=== PATIENT | female | born 1995 | race Caucasian/White ===

== ENCOUNTER 2022-12-22 16:01 | Outpatient (CLI) | payer OTHER, SELFPAY ==
[2022-12-22 16:52] LABS: Basophils Percent Auto 0.4 % (0.2-1.2); Eosinophils Absolute Auto 0.1 K/mm3 (0-0.3); Eosinophils Percent Auto 1.5 % (0-4.4); Hematocrit 38.1 % (37.0-47.0); Hemoglobin 12.5 g/dL (12.0-15.0); Immature Granulocyte Absolute 0.02 K/mm3 (0.00-0.031); Immature Granulocyte Percent A 0.2 % (0-0.5); Lymphocytes Absolute Auto 2.71 K/mm3 (0.9-3.2); Lymphocytes Percent Auto 28.8 % (18.3-44.2); Mean Corpuscular HGB Conc 32.8 g/dl (32-36); Mean Corpuscular Hemoglobin 27.6 pg (26-34); Mean Corpuscular Volume 84.1 fl (80-100); Mean Platelet Volume 9.3 fl (7.4-10.4); Monocytes Absolute Auto 0.5 K/mm3 (0.1-0.6); Monocytes Percent Auto 5.4 % (2.6-8.5); Neutrophils Percent Auto 63.7 % (45.5-73.1); Platelet Count Result 308 k/mm3 (150-375); Red Blood Count 4.53 M/mm3 (4.2-5.4); Red Cell Distribution Width 12.6 % (11.5-14.5); White Blood Count 9.4 K/mm3 (4.5-10.0)
[2022-12-22 17:03] LABS: Alanine Aminotransferase 26 U/L (6-35); Albumin Level 4.8 g/dL (3.5-5.1); Alkaline Phosphatase 73 U/L (38-126); Anion Gap 10 mmol/L (8-16); Aspartate Amino Transferase 29 U/L (14-36); Bilirubin,Total 0.4 mg/dL (0.2-1.3); Blood Urea Nitrogen 16 mg/dL (7-17); Calcium 9.7 mg/dL (8.4-10.2); Carbon Dioxide 25 mmol/L (22-30); Chloride 104 mmol/L (98-107); Estimated Glomerular Filt Rate > 60; Glucose 127 mg/dL (65-110); Potassium 3.8 mmol/L (3.4-5.0); Sodium 139 mmol/L (137-145)
[2022-12-22 17:32] LABS: Thyroid Stimulating Hormone 0.834 uIU/mL (0.465-4.680)
[2022-12-22 17:34] LABS: Free T4 Free Thyroxine 1.26 ng/mL (0.78-2.19)
[2022-12-22 17:36] LABS: Hemoglobin A1C 5.1 % (<5.7)
[2022-12-25 03:07] LABS: DHEA-Sulfate 279 mcg/dL (18-391); Thyroid Peroxidase Antibodies <1 IU/mL (<9)
[2022-12-25 06:25] LABS: LH 3.1 mIU/mL (***); Triiodothyronine T3 Free 2.8 pg/mL (2.3-4.2)
[2022-12-25 12:00] LABS: Testosterone Total 17 ng/dL (2-45)
[2022-12-29 22:16] LABS: Estradiol, Ultrasensitive 98 pg/mL
== END 2022-12-22 16:02 | disposition home or self-care (01) ==
LOC: ANHLAB 16:03
PROVIDERS: PCP Internal Medicine; Visit Provider Obstetrics & Gynecology
DX: N91.0 Primary amenorrhea (principal)
CPT/HCPCS: 36415; 80053; 82627; 82670; 83001; 83002; 83036; 84403; 84439; 84443; 84481; 85025; 86376

== ENCOUNTER 2023-09-10 18:17 | Emergency (ER) | payer OTHER, SELFPAY ==
--- NOTE | ~2023-09-10 | US_ITS ---
EXAMINATION: US OB <=14 wk fetus w TV INDICATION: pos preg; abd pain; c/f ectopic TECHNIQUE: Sonography of the pelvis was performed by transabdominal and transvaginal techniques. COMPARISON: 12/28/2022, images only RESULT: Uterus: 8.1 x 4.5 x 5.3 cm. Anteverted. 11 mm endometrium. Homogenous myometrium. Intrauterine gestational sac: Not seen. Right ovary: 2.2 x 1.6 x 2.7 cm. Vascular flow is present. Corpus luteal cyst. Left ovary: 4.3 x 1.5 x 3.2 cm. Vascular flow is present. No adnexal mass. Pelvis free fluid: Small volume free pelvic fluid, within physiologic range. IMPRESSION: Positive test with no intrauterine gestational sac visualized. Findings represent pregnanc y of unknown location. Differential diagnosis includes early normal, failed early, or ectopic pregna ncy. Recommend follow-up serial beta-hCG values. Ultrasound follow-up should be considered as clini isael warranted. Reviewed, dictated and finalized at location K. IMPRESSION: Positive test with no intrauterine gestational sac visualized. Findi ngs represent of unknown location. Differential diagnosis includes e elza normal, failed early, or ectopic . Recommend follow-up serial be ta-hCG values. Ultrasound follow-up should be considered as clinically warrant ed.
[2023-09-10 18:35] VITALS: BP 129/77; PULSE 117; RESP 20; TEMP 36.8; O2SAT 100
--- NOTE | 2023-09-10 18:40 | ED.ABDPAIN ---
HPI - Abdominal Pain General Chief Complaint: Abdominal Pain <Pamela Higuera PA-C - Last Filed: 09/12/23 10:23> Stated Complaint: ABD pain, ectopic <Pamela Higuera PA-C - Last Filed: 09/12/23 10:23> Time Seen by Provider: 09/10/23 18:40 <Pamela Higuera PA-C - Last Filed: 09/12/23 10:23> Focused HPI: This is a 28 year old female that presents to the ER for pelvic pain. Reports a positive home test. She has been having left sided pelvic pain which concerned her and prompted her to be seen. She has not had an US yet this . LMP 08/09. Her OB is Dr. Orellana. Denies fever, vomiting or dysuria. GENERAL: Well-appearing, well-nourished, and in no acute distress. HEAD: Normocephalic, atraumatic. CHEST: Clear to auscultation. ?No respiratory distress. HEART: Regular rate and rhythm.? NEURO: ?Alert and oriented x3. Patient screened in triage and initial orders placed.? ?Additional care and disposition to be based upon?diagnostic testing and treatment. <Pamela Higuera PA-C - Last Filed: 09/12/23 10:23> History of Present Illness HPI narrative: This is a 28-year-old 002 female presents with left-sided abdominal pain and concern for ectopic . She has never had a previous ectopic but is concerned given the abdominal pain which she did not experience with her other 2 pregnancies. She had a positive test at home on Wednesday. Her OB Gyne is Dr. Her smith she has not established with a yet for this but has an appointment to do so on 10/19/2023. She denies any vaginal bleeding. Last menstrual period 08/09/2023. Immediately after she had a positive home test she started taking vitamins. She has not yet taken anything for pain as she did not know what was safe to take during . <Aleena Spann MD - Last Filed: 09/11/23 18:07> Related Data Home Medications: Home Medications Medication Instructions Recorded Confirmed propranolol 80 mg tablet 80 mg PO Q12H 04/06/22 12/22/22 sertraline 50 mg tablet 25 mg PO DAILY 04/06/22 12/22/22 <Pamela Higuera PA-C - Last Filed: 09/12/23 10:23> Allergies/Adverse Reactions: Allergies Allergy/AdvReac Type Severity Reaction Status Date / Time sulfamethoxazole Allergy Severe Rash Verified 09/12/23 09:02 [From Bactrim] trimethoprim [From Bactrim] Allergy Severe Rash Verified 09/12/23 09:02 <Pamela Higuera PA-C - Last Filed: 09/12/23 10:23> Review of Systems Review of Systems: CONSTITUTIONAL: Denies fever GASTROINTESTINAL: Reports abdominal pain. Denies nausea, vomiting GENITOURINARY: Denies dysuria <JR Arriaga Last Filed: 09/12/23 10:23> All systems reviewed & are unremarkable except as noted in HPI and below <JR Arriaga Last Filed: 09/12/23 10:23> [facility] Past Medical History Medical History: Medical History Amenorrhea, primary Encounter for IUD removal Gestational hypertension Glaucoma <JR Arriaga Last Filed: 09/12/23 10:23> Surgical History Surgical History: Surgical History History of 07/03/15 primary c/s--arrest of dilation [place] 10/29/17 rpt c/s History of gynecological procedure (~2018) mirena iud insertion History of gynecological procedure (04/06/22) mirena iud removal History of tonsillectomy (~06/08/02) <JR Arriaga Last Filed: 09/12/23 10:23> Family History Family History: Family History Mother Diabetes mellitus <JR Arriaga Last Filed: 09/12/23 10:23> Social History Social History: Social History Smoking status: Never smoker Alcohol intake: never Substance use: never Substance use type: does not use L
[2023-09-10 19:10] LABS: Basophils Percent Auto 0.3 % (0.2-1.2); Eosinophils Absolute Auto 0.1 K/mm3 (0-0.3); Eosinophils Percent Auto 0.9 % (0-4.4); Hematocrit 35.7 % (37.0-47.0); Hemoglobin 11.6 g/dL (12.0-15.0); Immature Granulocyte Absolute 0.03 K/mm3 (0.00-0.031); Immature Granulocyte Percent A 0.3 % (0-0.5); Lymphocytes Absolute Auto 3.24 K/mm3 (0.9-3.2); Lymphocytes Percent Auto 27.6 % (18.3-44.2); Mean Corpuscular HGB Conc 32.5 g/dl (32-36); Mean Corpuscular Hemoglobin 27.4 pg (26-34); Mean Corpuscular Volume 84.2 fl (80-100); Mean Platelet Volume 8.9 fl (7.4-10.4); Monocytes Absolute Auto 0.7 K/mm3 (0.1-0.6); Monocytes Percent Auto 5.6 % (2.6-8.5); Neutrophils Absolute Auto 7.7 K/mm3 (1.3-6.7); Neutrophils Percent Auto 65.3 % (45.5-73.1); Platelet Count Result 279 k/mm3 (150-375); Red Blood Count 4.24 M/mm3 (4.2-5.4); Red Cell Distribution Width 13.1 % (11.5-14.5); White Blood Count 11.7 K/mm3 (4.5-10.0)
[2023-09-10 19:19] LABS: Appearance Urine Clear (Clear); Bilirubin Urine Negative (Negative); Blood Urine Trace (Negative); Color Urine Yellow (Yellow); Glucose Urine UA Negative (Negative); Ketones Urine Negative (Negative); Leukocyte Esterase Ur Trace LEU/UL (Negative); Nitrate Urine Negative (Negative); Protein Urine Negative (Negative); Specific Grav Ur 1.006 (1.001-1.035); Urobilinogen Urine 0.2 mg/dL (<2.0); pH Urine 5.5 (5.0-9.0)
[2023-09-10 19:21] LABS: Alanine Aminotransferase 17 U/L (6-35); Albumin Level 4.5 g/dL (3.5-5.1); Alkaline Phosphatase 71 U/L (38-126); Anion Gap 9 mmol/L (4-12); Aspartate Amino Transferase 20 U/L (14-36); Bilirubin,Total 0.4 mg/dL (0.2-1.3); Blood Urea Nitrogen 8 mg/dL (7-17); Carbon Dioxide 23 mmol/L (22-30); Chloride 106 mmol/L (98-107); Estimated CRCL calculation 159 ml/min; Estimated Glomerular Filt Rate > 60; Glucose 88 mg/dL (65-110); Lipase 130 U/L (23-300); Potassium 3.8 mmol/L (3.4-5.0); Sodium 138 mmol/L (137-145)
[2023-09-10 19:28] LABS: Bacteria Urine None Seen /hpf; Non Pathogenic Casts 0-2; RBC Urine 0-2 /hpf (0-2); Squamous Epithelial Cell Urine Few /hpf (Few); WBC Urine 0-5 /hpf (0-3)
[2023-09-10 19:29] LABS: Add Urine Microscopic? YES
[2023-09-10] MEDS: ACETAMINOPHEN 500 MG TABLET 1000 MG PO (20:14)
[2023-09-10 23:04] VITALS: BP 129/73; PULSE 89; RESP 17; TEMP 36.8; O2SAT 100
== END 2023-09-10 23:05 | disposition home or self-care (01) ==
PROVIDERS: Physician Assistant; Emergency Provider Student in an Organized Health Care Education/Training Program; PCP Family Medicine
DX: O26.891 Other specified pregnancy related conditions, first trimester (principal); R10.9 Unspecified abdominal pain; O99.891 Other specified diseases and conditions complicating pregnancy; D72.829 Elevated white blood cell count, unspecified; H40.9 Unspecified glaucoma; O99.011 Anemia complicating pregnancy, first trimester; D64.9 Anemia, unspecified; Z3A.01 Less than 8 weeks gestation of pregnancy
CPT/HCPCS: 36415; 76801; 76817; 80053; 81001; 81025; 83690; 84702; 85025; 99284; A9270

== ENCOUNTER 2023-09-12 09:01 | Emergency (ER) | payer OTHER, SELFPAY ==
[2023-09-12 09:05] VITALS: BP 119/74; PULSE 104; RESP 18; TEMP 37; O2SAT 100
--- NOTE | 2023-09-12 09:14 | ED.ABDPAIN ---
HPI - Abdominal Pain General Chief Complaint: Abdominal Pain Stated Complaint: R/O ectopic Time Seen by Provider: 09/12/23 09:14 Source: patient Mode of arrival: ambulatory Limitations: no limitations History of Present Illness HPI narrative: Patient is 28 years old white female drove herself to the emergency room with intermittent pain left mid abdomen started 1 week ago,. She denies any fever, chills, nausea, vomiting, diarrhea, constipation, urinary symptoms, vaginal bleeding or discharge. Last menstrual period was August 09, 2023. Patient was seen 2 days ago in our emergency room and tested positive for and came back to check beta hCG and make sure she does not have ectopic . Patient is scheduled see her OBGYN October 2023 beta hCG on September 10, 2023 was 773 Related Data Home Medications Medication Instructions Recorded Confirmed propranolol 80 mg tablet 80 mg PO Q12H 04/06/22 12/22/22 sertraline 50 mg tablet 25 mg PO DAILY 04/06/22 12/22/22 Allergies Allergy/AdvReac Type Severity Reaction Status Date / Time sulfamethoxazole Allergy Severe Rash Verified 09/12/23 09:02 [From Bactrim] trimethoprim [From Bactrim] Allergy Severe Rash Verified 09/12/23 09:02 Review of Systems Review of Systems: All systems reviewed & are unremarkable except as noted in HPI and below PMFSH Past Medical History Medical History Amenorrhea, primary Encounter for IUD removal Gestational hypertension Glaucoma Surgical History Surgical History History of 07/03/15 primary c/s--arrest of dilation [place] 10/29/17 rpt c/s History of gynecological procedure (~2018) mirena iud insertion History of gynecological procedure (04/06/22) mirena iud removal History of tonsillectomy (~06/08/02) Family History Family History Mother Diabetes mellitus Social History Social History Smoking status: Never smoker Alcohol intake: never Substance use: never Substance use type: does not use Lack of Transportation: No Lack of Food: Never True Current Housing: I Have Housing Concerned About Future Housing: No Difficulty Paying Gas/Electric Bills: No Difficulty Paying for Meds: No Currently Unemployed: No Education: High School Diploma/GED Difficulty w/ Childcare or Family Care: No Living arrangements: other Additional living arrangements comments: Occupation/Education: other 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 Gender identity (if verbalized by the patient): Female Sexual Orientation (if Verbalized by the Patient): Straight or Heterosexual Exam Narrative: General appearance: Well-developed, well-nourished Skin: Normal color Head: Normocephalic, nontraumatic Eyes: Clear conjunctiva ENT: Oropharynx normal, ears normal, nose normal Neck: Supple, nontender Chest and respiratory: Airway patent, no respiratory distress, no accessory muscle use Heart: Regular rate/rhythm Abdomen: Soft, slight tenderness left mid abdomen, no bruises, no swelling or rash, no organomegaly, quiet bowel sounds Vascular: Normal peripheral pulses, normal capillary refill. 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
[2023-09-12 10:02] LABS: Appearance Urine Clear (Clear); Bacteria Urine None Seen /hpf; Bilirubin Urine Negative (Negative); Blood Urine Negative (Negative); Color Urine Yellow (Yellow); Glucose Urine UA Negative (Negative); Ketones Urine Negative (Negative); Leukocyte Esterase Ur Trace LEU/UL (Negative); Nitrate Urine Negative (Negative); Non Pathogenic Casts 0-2; Protein Urine Negative (Negative); Specific Grav Ur 1.005 (1.001-1.035); Squamous Epithelial Cell Urine Few /hpf (Few); Urobilinogen Urine 0.2 mg/dL (<2.0); WBC Urine 0-5 /hpf (0-3); pH Urine 5.5 (5.0-9.0)
[2023-09-12 10:13] LABS: Add Urine Microscopic? YES
--- NOTE | 2023-09-12 11:45 | WPDCN ---
Assessment and Plan Assessment and plan (1) Abdominal pain during : Qualifiers: Trimester: first trimester Qualified Code(s): O26.891 - Other specified related conditions, first trimester; R10.9 - Unspecified abdominal pain Code(s): O26.899 - Other specified related conditions, unspecified trimester; R10.9 - Unspecified abdominal pain Status: Acute Assessment and Plan: 28-year-old female who presents with complaint of abdominal pain Patient has had left-sided abdominal pain for the past week Patient states the pain is intermittent in nature. Patient comfortable during exam. Patient states pain is a 6/10 at worst Patient denies any relation to food consumption Denies any dysuria, vaginal discharge, or vaginal bleeding patient has mild tenderness on exam. Nonacute abdomen Vital signs stable, afebrile Beta hCG levels rising appropriate (2) of unknown anatomic location: Code(s): O36.80X0 - with inconclusive viability, not applicable or unspecified Status: Acute Assessment and Plan: patient reports positive home test at home Patient reports an LMP of 08/09 Beta HCG rising appropriately Pelvic ultrasound on 09/09 showed of unknown location Patient presents to the emergency room with left-sided abdominal pain Intermittent in nature. Patient comfortable on exam Discussed the risks of ectopic at length Offer patient hospital admission for observation Discussed that repeat ultrasound could be offered in the morning but given the low beta HCG, ultrasound findings may be unchanged Patient states she was counseled appropriately on risks Patient would prefer discharge home with continued monitoring of symptoms The patient encouraged to return with acute worsening of symptoms HPI Data of Consult Date/Time: 09/12/23 11:45 Primary Care Provider: Cheryle Billingsley MD Consult Narrative Reason for consult: left sided abdominal/pelvic pain in early Narrative: Michaela John is a 28 year old who presents to the emergency room with left-sided abdominal pain. The patient initially presented on 09/10/2023 with the same complaints. Patient states she had a positive home test prior to her arrival. Patient states this pain was atypical from her 1st 2 prior pregnancies. Patient denies any vaginal bleeding. She states her LMP was 08/09/2023. Patient's initial beta HCG levels were 773 and have risen to 1498. patient is resting comfortable in the bed during my assessment. The patient states she will get intermittent sharp pains in her left abdomen. Patient states at their worst there was 6/10. Patient has been having this pain sensation for the past week. She denies any vaginal discharge. She denies any diarrhea or constipation. She denies any dysuria. Patient does state that she was previously taking semaglutide. she has stopped since finding out she was . Patient does state that her stomach has been sensitive after stopping that medication. Review of Systems Review of Systems: All systems reviewed & are unremarkable except as noted in HPI and below PMFSH Past Medical History Medical History Amenorrhea, primary Encounter for IUD removal Gestational hypertension Glaucoma Surgical History Surgical History History of 07/03/15 primary c/s--arrest of dilation [place] 10/29/17 rpt c/s History of gynecological procedure (~2018) mirena iud insertion History of gynecological procedure (04/06/22) mirena iud removal History of tonsillectomy (~06/08/02) Family History Family History Mother Diabetes mellitus Social History Social History Smo
== END 2023-09-12 12:02 | disposition home or self-care (01) ==
PROVIDERS: Emergency Provider Emergency Medicine; PCP Family Medicine
DX: O26.891 Other specified pregnancy related conditions, first trimester (principal); R10.9 Unspecified abdominal pain
CPT/HCPCS: 36415; 81001; 84702; 99283

== ENCOUNTER 2023-09-17 08:28 | Emergency (ER) | payer OTHER, SELFPAY ==
--- NOTE | ~2023-09-17 | US_ITS ---
EXAMINATION: US OB <=14 wk fetus w TV DATE: 09/17/2023 11:28 INDICATION: Vaginal bleeding. . TECHNIQUE: Real-time transabdominal and transvaginal pelvic ultrasound was performed. COMPARISON: Ultrasound 09/10/2023 FINDINGS: TRANSABDOMINAL ULTRASOUND: The uterus measures 8.9 x 4.7 x 5.9 cm. TRANSVAGINAL ULTRASOUND: There is an intrauterine gestational sac with mean diameter of 7 mm, this co rrelates with an estimated gestational age of 5 weeks and 2 days +/- 3 days. A yolk sac is identified . No pole is identified. There is a second cyst in the endometrial complex. The right ovary mariah sures 2.8 x 1.6 x 2.3 cm. The left ovary measures 4.3 x 1.7 x 3.2 cm. There is normal vascular flow i n the ovaries. There is no free fluid in the pelvis. IMPRESSION: 1. Intrauterine gestation with estimated date of delivery of 05/17/2024. A second cyst in the endomet rial complex is indeterminate for a dichorionic twin. Reviewed, dictated and finalized at location A. IMPRESSION: 1. Intrauterine gestation with estimated date of delivery of 05/17/2024. A [place] cyst in the endometrial complex is indeterminate for a dichorionic twin.
[2023-09-17 08:56] VITALS: BP 140/95; PULSE 109; RESP 18; TEMP 36.6; O2SAT 100
--- NOTE | 2023-09-17 10:21 | ED.FEMALEGU ---
HPI - Female Genitourinary General Chief complaint: Vaginal Bleeding Stated complaint: 5 weeks , bleeding Time Seen by Provider: 09/17/23 09:47 History of Present Illness HPI Narrative: 28-year-old female that is currently about 5 and half weeks presents emergency department for evaluation of vaginal bleeding. Patient did have follow-up with her OB Gyne last week due to lower abdominal pain. Patient had ultrasound that did not show an intrauterine at that time and follow-up ultrasound was recommended. This morning patient did have some onset some vaginal spotting. Patient reports that she passed a pea sized clot and then was having some spotting afterwards. Patient denies any current abdominal pain. Patient does have history of 3 prior pregnancies, 2 pregnancies went full-term and 1 ended in miscarriage around 3 weeks. Related Data Home Medications Medication Instructions Recorded Confirmed propranolol 80 mg tablet 80 mg PO Q12H 04/06/22 12/22/22 sertraline 50 mg tablet 25 mg PO DAILY 04/06/22 12/22/22 Allergies Allergy/AdvReac Type Severity Reaction Status Date / Time sulfamethoxazole Allergy Severe Rash Verified 09/17/23 10:05 [From Bactrim] trimethoprim [From Bactrim] Allergy Severe Rash Verified 09/17/23 10:05 Review of Systems Review of Systems: All systems reviewed & are unremarkable except as noted in HPI and below PMFSH Past Medical History Medical History Amenorrhea, primary Encounter for IUD removal Gestational hypertension Glaucoma Surgical History Surgical History History of 07/03/15 primary c/s--arrest of dilation [place] 10/29/17 rpt c/s History of gynecological procedure (~2018) mirena iud insertion History of gynecological procedure (04/06/22) mirena iud removal History of tonsillectomy (~06/08/02) Family History Family History Mother Diabetes mellitus Social History Social History Smoking status: Never smoker Alcohol intake: never Substance use: never Substance use type: does not use Lack of Transportation: No Lack of Food: Never True Current Housing: I Have Housing Concerned About Future Housing: No Difficulty Paying Gas/Electric Bills: No Difficulty Paying for Meds: No Currently Unemployed: No Education: High School Diploma/GED Difficulty w/ Childcare or Family Care: No Living arrangements: other Additional living arrangements comments: Occupation/Education: other 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 HEAD: normocephalic, atraumatic. EYES: PERRLA/EOMI, conjunctivae clear. NOSE: Normal no drainage EARS:TMS clear with good light reflex. THROAT: Pharynx clear, no exudate. NECK: Supple. No adenopathy, no masses. RESPIRATORY: Airway patent, respirations nonlabored. Clear to auscultation bilaterally, no rales, rhonchi, wheezing. CARDIOVASCULAR: Regular rate and rhythm without murmurs rubs or gallops. ABDOMINAL: Soft, nontender, nondistended, normal bowel sounds MUSCULOSKELETAL: Moves all extremities. Strength/ROM intact, No edema, No calf tenderness. NEURO: Alert. Cranial nerves II through XII intact. Good gait. Good coordination SKIN: Warm, dry. Normal Color Course Course Emergency Course: patient was discharged to home with instructions for out patient follow-up with OB Gyne Vital Signs Vital signs: Vital Signs Temperature 98 F 09/17/23 08:56 Pulse Rate 109 H 09/17/23 08:56 Respiratory Rate 18 09/17/23 08:56 Blo
[2023-09-17] MEDS: SODIUM CHLORIDE 0.9% IV 1,000 ML 999 ML IV CONT (11:31)
[2023-09-17 11:42] LABS: Basophils Percent Auto 0.3 % (0.2-1.2); Eosinophils Absolute Auto 0.1 K/mm3 (0-0.3); Eosinophils Percent Auto 0.9 % (0-4.4); Hematocrit 38.6 % (37.0-47.0); Hemoglobin 12.3 g/dL (12.0-15.0); Immature Granulocyte Absolute 0.04 K/mm3 (0.00-0.031); Immature Granulocyte Percent A 0.4 % (0-0.5); Lymphocytes Absolute Auto 2.47 K/mm3 (0.9-3.2); Lymphocytes Percent Auto 26.3 % (18.3-44.2); Mean Corpuscular HGB Conc 31.9 g/dl (32-36); Mean Corpuscular Volume 84.6 fl (80-100); Mean Platelet Volume 9.1 fl (7.4-10.4); Monocytes Absolute Auto 0.5 K/mm3 (0.1-0.6); Monocytes Percent Auto 5.1 % (2.6-8.5); Neutrophils Absolute Auto 6.3 K/mm3 (1.3-6.7); Platelet Count Result 301 k/mm3 (150-375); Red Blood Count 4.56 M/mm3 (4.2-5.4); Red Cell Distribution Width 12.9 % (11.5-14.5); White Blood Count 9.4 K/mm3 (4.5-10.0)
[2023-09-17 11:49] LABS: Appearance Urine Clear (Clear); Bacteria Urine None Seen /hpf; Bilirubin Urine Negative (Negative); Blood Urine 1+ (Negative); Color Urine Yellow (Yellow); Glucose Urine UA Negative (Negative); Ketones Urine Negative (Negative); Leukocyte Esterase Ur Negative LEU/UL (Negative); Nitrate Urine Negative (Negative); Non Pathogenic Casts 0-2; Protein Urine Negative (Negative); RBC Urine 0-2 /hpf (0-2); Specific Grav Ur 1.007 (1.001-1.035); Squamous Epithelial Cell Urine Occasional /hpf (Few); Urobilinogen Urine 0.2 mg/dL (<2.0); WBC Urine 0-5 /hpf (0-3); pH Urine 7.5 (5.0-9.0)
[2023-09-17 11:53] LABS: Prothrombin Time 13.4 Seconds (11.1-14.7)
[2023-09-17 11:54] LABS: Partial Thromboplastin Time 23.6 Seconds (22.3-36.8)
[2023-09-17 12:01] LABS: Alanine Aminotransferase 18 U/L (6-35); Alkaline Phosphatase 63 U/L (38-126); Anion Gap 10 mmol/L (4-12); Aspartate Amino Transferase 31 U/L (14-36); Bilirubin,Total 0.6 mg/dL (0.2-1.3); Blood Urea Nitrogen 10 mg/dL (7-17); Calcium 10.1 mg/dL (8.4-10.2); Carbon Dioxide 22 mmol/L (22-30); Chloride 106 mmol/L (98-107); Estimated CRCL calculation 135 ml/min; Estimated Glomerular Filt Rate > 60; Glucose 82 mg/dL (65-110); Potassium 4.2 mmol/L (3.4-5.0); Sodium 138 mmol/L (137-145)
[2023-09-17 12:11] LABS: Add Urine Microscopic? YES
[2023-09-17 12:58] VITALS: BP 123/90; PULSE 88; RESP 20; TEMP 36.8; O2SAT 100
== END 2023-09-17 12:59 | disposition home or self-care (01) ==
PROVIDERS: Emergency Provider Emergency Medicine; PCP Family Medicine
DX: O20.9 Hemorrhage in early pregnancy, unspecified (principal); Z3A.01 Less than 8 weeks gestation of pregnancy
CPT/HCPCS: 36415; 76801; 76817; 80053; 81001; 81025; 84702; 85025; 85610; 85730; 86850; 86900; 86901; 96360; 99284; J7030

== ENCOUNTER 2023-10-11 08:26 | Emergency (ER) | payer SELFPAY ==
--- NOTE | ~2023-10-11 | US_ITS ---
EXAMINATION: US OB <= 14 weeks fetus DATE: 10/11/2023 11:00 INDICATION: Vaginal bleeding. Twin . TECHNIQUE: Real-time transabdominal and transvaginal obstetric ultrasound. FINDINGS: Ultrasound dated 09/17/2023 The uterus measures 9.8 x 6.2 x 9 cm. There is twin living dichorionic, diamniotic . Twin A: [place]-rump length measures 2.14 cm corresponding to 8 week 5 day gestation. heart rate 164 BPM. Placenta is identified. Twin B: heart rate 173 BPM. [place]-rump length measures 2.1 cm corresponding to 8 week 5 day ges tation. Placenta is identified. The ovaries within normal limits. No free fluid in the pelvis. IMPRESSION: 1. Twin living intrauterine with an EGA of 8 weeks, 5 days (EDC by initial ultrasound of ). Reviewed, dictated and finalized at location B. IMPRESSION: 1. Twin living intrauterine with an EGA of 8 weeks, 5 days (EDC by in itial ultrasound of 05/17/2024).
[2023-10-11 08:35] VITALS: BP 145/94; PULSE 100; RESP 18; TEMP 37.2; O2SAT 98
--- NOTE | 2023-10-11 09:19 | ED.PREGNANCY ---
HPI - General Chief complaint: Vaginal Bleeding Stated complaint: miscarriage Time Seen by Provider: 10/11/23 08:51 Source: patient and family () Mode of arrival: ambulatory Limitations: no limitations History of Present Illness HPI Narrative: The patient presents with vaginal bleeding and low bilateral abdominal pain and cramping. She is a 12 female , reportedly 9 weeks , LMP 08/09/23. She noted that she had some vaginal bleeding earlier in this at the beginning of the month but it stopped. Last night she began having heavy bleeding. Her OB Gyne is Dr. Orellana. She has not yet established with them for this but has upcoming appointment October 19, 2023.Has not yet taken anything for pain. She has also been having some other vaginal discharge. Related Data Home Medications Medication Instructions Recorded Confirmed propranolol 80 mg tablet 80 mg PO Q12H 04/06/22 12/22/22 sertraline 50 mg tablet 25 mg PO DAILY 04/06/22 12/22/22 Allergies Allergy/AdvReac Type Severity Reaction Status Date / Time sulfamethoxazole Allergy Severe Rash Verified 10/11/23 08:27 [From Bactrim] trimethoprim [From Bactrim] Allergy Severe Rash Verified 10/11/23 08:27 REPLACED BY [facility] Past Medical History Medical History (Updated 10/11/23 @ 22:13 by Aleena Spann MD) Amenorrhea, primary Gestational hypertension Glaucoma Surgical History Surgical History History of 07/03/15 primary c/s--arrest of dilation [place] 10/29/17 rpt c/s History of gynecological procedure (~2018) mirena iud insertion History of gynecological procedure (04/06/22) mirena iud removal History of tonsillectomy (~06/08/02) Family History Family History Mother Diabetes mellitus Social History Social History Smoking status: Never smoker Alcohol intake: never Substance use: never Substance use type: does not use Lack of Transportation: No Lack of Food: Never True Current Housing: I Have Housing Concerned About Future Housing: No Difficulty Paying Gas/Electric Bills: No Difficulty Paying for Meds: No Currently Unemployed: No Education: High School Diploma/GED Difficulty w/ Childcare or Family Care: No Living arrangements: other Additional living arrangements comments: Occupation/Education: other 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 HEAD: Normocephalic, atraumatic. EYES: Non injected, non icteric ENT: Nares clear, no rhinorrhea or epistaxis. NECK: Supple. CHEST: Speaking in full sentences. No respiratory distress. HEART: Regular rate and rhythm. . ABDOMEN: Soft, nondistended. : Normal external female genitalia. No significant bleeding in vaginal vault. Cervical os visualized and closed. EXTREMITIES: Normal range of motion. No edema. SKIN: Warm, dry, no rash. NEURO: No focal deficits. Alert and oriented x3. PSYCH: Normal mood and affect. Course Vital Signs Vital signs: Vital Signs Temperature 98.9 F 10/11/23 08:35 Pulse Rate 100 10/11/23 08:35 Respiratory Rate 18 10/11/23 08:35 Blood Pressure 145/94 H 10/11/23 08:35 Pulse Oximetry 98 10/11/23 08:35 Oxygen Delivery Room Air 10/11/23 08:35 Temperature 98.9 F 10/11/23 08:35 Pulse Rate 89 10/11/23 14:30 Respiratory Rate 16 10/11/23 14:30 Blood Pressure 114/67 10/11/23 14:30 Pulse Oximetry 99 10/11/23 14:30 Oxygen Delivery Room Air 10/11/23 08:35 MDM - OB/Uterine Contractions MDM Narrative Medical decision making narrative: This patient
--- NOTE | 2023-10-11 09:45 | PC.NURSE ---
pt in ultrasound at this time.
[2023-10-11 10:56] LABS: Basophils Percent Auto 0.3 % (0.2-1.2); Eosinophils Absolute Auto 0.1 K/mm3 (0-0.3); Eosinophils Percent Auto 0.7 % (0-4.4); Hematocrit 36.1 % (37.0-47.0); Hemoglobin 11.8 g/dL (12.0-15.0); Immature Granulocyte Absolute 0.05 K/mm3 (0.00-0.031); Immature Granulocyte Percent A 0.5 % (0-0.5); Lymphocytes Absolute Auto 2.21 K/mm3 (0.9-3.2); Lymphocytes Percent Auto 20.5 % (18.3-44.2); Mean Corpuscular HGB Conc 32.7 g/dl (32-36); Mean Corpuscular Hemoglobin 27.2 pg (26-34); Mean Corpuscular Volume 83.2 fl (80-100); Mean Platelet Volume 8.9 fl (7.4-10.4); Monocytes Absolute Auto 0.6 K/mm3 (0.1-0.6); Monocytes Percent Auto 5.8 % (2.6-8.5); Neutrophils Absolute Auto 7.8 K/mm3 (1.3-6.7); Neutrophils Percent Auto 72.2 % (45.5-73.1); Platelet Count Result 241 k/mm3 (150-375); Red Blood Count 4.34 M/mm3 (4.2-5.4); Red Cell Distribution Width 13.3 % (11.5-14.5); White Blood Count 10.8 K/mm3 (4.5-10.0)
[2023-10-11 11:07] LABS: Alanine Aminotransferase 16 U/L (6-35); Albumin Level 4.1 g/dL (3.5-5.1); Alkaline Phosphatase 59 U/L (38-126); Anion Gap 6 mmol/L (4-12); Aspartate Amino Transferase 22 U/L (14-36); Bilirubin,Total 0.3 mg/dL (0.2-1.3); Blood Urea Nitrogen 7 mg/dL (7-17); Calcium 9.1 mg/dL (8.4-10.2); Carbon Dioxide 24 mmol/L (22-30); Chloride 106 mmol/L (98-107); Estimated CRCL calculation 193 ml/min; Estimated Glomerular Filt Rate > 60; Glucose 82 mg/dL (65-110); Potassium 3.8 mmol/L (3.4-5.0); Sodium 136 mmol/L (137-145)
[2023-10-11 11:09] LABS: Prothrombin Time 13.8 Seconds (11.1-14.7)
[2023-10-11 11:10] LABS: Partial Thromboplastin Time 23.8 Seconds (22.3-36.8)
[2023-10-11 11:50] VITALS: BP 105/60; PULSE 88; RESP 15; O2SAT 100
[2023-10-11 11:50] LABS: Appearance Urine Clear (Clear); Bacteria Urine None Seen /hpf; Bilirubin Urine Negative (Negative); Blood Urine 3+ (Negative); Color Urine Yellow (Yellow); Glucose Urine UA Negative (Negative); Ketones Urine Negative (Negative); Leukocyte Esterase Ur Trace LEU/UL (Negative); Nitrate Urine Negative (Negative); Non Pathogenic Casts 0-2; Protein Urine Negative (Negative); Specific Grav Ur 1.006 (1.001-1.035); Squamous Epithelial Cell Urine Few /hpf (Few); Urobilinogen Urine 0.2 mg/dL (<2.0); WBC Urine 0-5 /hpf (0-3)
[2023-10-11 11:54] LABS: Add Urine Microscopic? YES
[2023-10-11 12:55] LABS: Trichomonas Vag PCR NOT DETECTED (NOT DETECTE)
[2023-10-11 13:20] LABS: Chlamydia trachomatis NOT DETECTED (NOT DETECTE); Neisseria gonorrhoeae PCR NOT DETECTED (NOT DETECTE)
[2023-10-11 14:30] VITALS: BP 114/67; PULSE 89; RESP 16; O2SAT 99
== END 2023-10-11 14:32 | disposition home or self-care (01) ==
PROVIDERS: Emergency Provider Student in an Organized Health Care Education/Training Program; PCP Family Medicine
DX: O20.0 Threatened abortion (principal); O30.001 Twin pregnancy, unspecified number of placenta and unspecified number of amniotic sacs, first trimester; O99.011 Anemia complicating pregnancy, first trimester; D64.9 Anemia, unspecified; O99.891 Other specified diseases and conditions complicating pregnancy; D72.829 Elevated white blood cell count, unspecified; Z3A.08 8 weeks gestation of pregnancy
CPT/HCPCS: 36415; 76801; 76802; 80053; 81001; 84702; 85025; 85461; 85610; 85730; 86850; 86900; 86901; 87491; 87591; 87661; 99284

== ENCOUNTER 2024-01-04 14:28 | Outpatient (CLI) | payer BC, SELFPAY ==
[2024-01-04 15:26] VITALS: BP 117/63; PULSE 106
--- NOTE | 2024-01-04 15:28 | PC.NURSE ---
Dr. Orellana informed of this 21 wk twin gestation's arrival with c/o increased wetness in underwear since this morning. ROM plus was negative. Was able to doppler both babies, but could only get Twin B to trace any on the monitor. OK to discharge to home.
--- NOTE | 2024-01-04 15:28 | PC.NURSE ---
Dr. Orellana also informed pt has felt some intermittent lower abdominal pressure approximately twice per hour this week. Pt to increase fluid intake and pelvic rest.
[2024-01-04 15:30] VITALS: BP 127/61; PULSE 115; PULSE 116; RESP 18; TEMP 36.9
== END 2024-01-04 15:35 | disposition home or self-care (01) ==
LOC: ANHOBOP 14:37 → ANHOBPP 14:37
PROVIDERS: PCP Family Medicine; Visit Provider Obstetrics & Gynecology
DX: O42.90 Premature rupture of membranes, unspecified as to length of time between rupture and onset of labor, unspecified weeks of gestation (principal); Z3A.00 Weeks of gestation of pregnancy not specified
CPT/HCPCS: 84112; 99199

== ENCOUNTER 2024-02-12 16:10 | Observation (INO) | payer BC, SELFPAY ==
[2024-02-12 17:34] VITALS: BP 115/62; PULSE 97
--- NOTE | 2024-02-12 18:32 | OBADM ---
This patient, Michaela John, admitted to the OB room OB Post [facility] for observation. Patient/family oriented to hospital policies and general routines including ID bracelet, bed and alarms, visiting hours, pain management, procedures, bathroom and other care routines, personal items, smoking policy, room service/diet, and visiting hours. Patient/Family are encouraged to report perceived risks to care and to ask questions if they do not understand what they are told or what they should do.
--- NOTE | 2024-03-02 12:59 | PM.OBTRLD ---
OB - Triage/Final Diagnosis Visit Information Comments/Additional reasons for admission: I have assessed the risk for this patient, Michaela John, and determined that she would benefit from observation care. Final Diagnosis (1) Decreased movement: Code(s): O36.8190 - Decreased movements, unspecified trimester, not applicable or unspecified Status: Acute
== END 2024-02-12 17:55 | disposition home or self-care (01) ==
PROVIDERS: Admitting Provider Obstetrics & Gynecology; PCP Family Medicine; Visit Provider Obstetrics & Gynecology
DX: O36.8190 Decreased fetal movements, unspecified trimester, not applicable or unspecified (principal)
CPT/HCPCS: G0378; G0379

== ENCOUNTER 2024-02-27 18:43 | Outpatient (CLI) | payer BC, SELFPAY ==
[2024-02-27 19:11] VITALS: BP 135/86; PULSE 100
[2024-02-27 19:15] VITALS: BP 134/83; PULSE 99
[2024-02-27 19:23] LABS: Basophils Percent Auto 0.1 % (0.2-1.2); Eosinophils Absolute Auto 0.1 K/mm3 (0-0.3); Eosinophils Percent Auto 0.7 % (0-4.4); Hematocrit 27.2 % (37.0-47.0); Immature Granulocyte Absolute 0.11 K/mm3 (0.00-0.031); Lymphocytes Absolute Auto 2.05 K/mm3 (0.9-3.2); Lymphocytes Percent Auto 18.7 % (18.3-44.2); Mean Corpuscular HGB Conc 33.1 g/dl (32-36); Mean Corpuscular Hemoglobin 27.1 pg (26-34); Mean Corpuscular Volume 81.9 fl (80-100); Mean Platelet Volume 8.9 fl (7.4-10.4); Monocytes Absolute Auto 0.9 K/mm3 (0.1-0.6); Monocytes Percent Auto 7.9 % (2.6-8.5); Neutrophils Absolute Auto 7.8 K/mm3 (1.3-6.7); Neutrophils Percent Auto 71.6 % (45.5-73.1); Platelet Count Result 224 k/mm3 (150-375); Red Blood Count 3.32 M/mm3 (4.2-5.4); Red Cell Distribution Width 13.5 % (11.5-14.5)
[2024-02-27 19:30] VITALS: BP 135/79; PULSE 100
[2024-02-27 19:30] LABS: Creatinine Urine 25.4 mg/dL; Total Protein Urine Random 15 mg/dL; Ur Ttl Prot Creatinine Ratio 0.59 mg/mg (0-0.20)
[2024-02-27 19:32] LABS: Alanine Aminotransferase 13 U/L (6-35); Albumin Level 3.4 g/dL (3.5-5.1); Alkaline Phosphatase 84 U/L (38-126); Anion Gap 10 mmol/L (4-12); Aspartate Amino Transferase 18 U/L (14-36); Bilirubin,Total 0.2 mg/dL (0.2-1.3); Blood Urea Nitrogen 7 mg/dL (7-17); Calcium 8.9 mg/dL (8.4-10.2); Carbon Dioxide 21 mmol/L (22-30); Chloride 102 mmol/L (98-107); Estimated Glomerular Filt Rate > 60; Glucose 112 mg/dL (65-110); Potassium 3.3 mmol/L (3.4-5.0); Sodium 133 mmol/L (137-145); Uric Acid 3.6 mg/dL (2.5-7.5)
[2024-02-27 19:46] VITALS: BP 132/78; PULSE 96
[2024-02-27 19:55] LABS: Bacteria Urine None Seen /hpf; Need Manual Microscopic Reviewed; Non Pathogenic Casts 0-2; RBC Urine 0-2 /hpf (0-2); Squamous Epithelial Cell Urine None Seen /hpf (Few); WBC Urine 0-5 /hpf (0-3)
[2024-02-27 20:00] VITALS: BP 130/74; PULSE 99
[2024-02-27 20:02] LABS: Add Urine Microscopic? NO; Appearance Urine Clear (Clear); Blood Urine Negative (Negative); Color Urine Light Yellow (Yellow); Glucose Urine UA Negative (Negative); Ketones Urine Negative (Negative); Nitrate Urine Negative (Negative); Protein Urine Negative (Negative); Specific Grav Ur <= 1.005 (1.001-1.035); pH Urine 6.5 (5.0-9.0)
[2024-02-27 20:03] LABS: Bilirubin Urine Negative (Negative); Leukocyte Esterase Ur Negative LEU/UL (Negative); Urobilinogen Urine 0.2 mg/dL (<2.0)
[2024-02-27 20:15] VITALS: BP 135/77; PULSE 101
--- NOTE | 2024-02-27 20:24 | PM.OBTRLD ---
OB - Triage/Final Diagnosis Visit Information Comments/Additional reasons for admission: I have assessed the risk for this patient, Michaela John, and determined that she would benefit from observation care. Evaluation Laboratory results: Laboratory Tests 02/27/24 19:11 WBC 11.0 H RBC 3.32 L Hgb 9.0 L Hct 27.2 L MCV 81.9 MCH 27.1 MCHC 33.1 RDW 13.5 Plt Count 224 MPV 8.9 Immature Gran % (Auto) 1.0 H Neut % (Auto) 71.6 Lymph % (Auto) 18.7 [place] % (Auto) 7.9 Eos % (Auto) 0.7 Baso % (Auto) 0.1 L Lymph # (Auto) 2.05 [place] # (Auto) 0.9 H Eos # (Auto) 0.1 Baso # (Auto) 0.0 Abs Immat Gran (auto) 0.11 H Absolute Neuts (auto) 7.8 H Absolute Nucleated RBC 0.000 Nucleated RBC % 0.0 Sodium 133 L Potassium 3.3 L Chloride 102 Carbon Dioxide 21 L Anion Gap 10 BUN 7 Creatinine 0.50 L Estim Creat Clear Calc Not Reportable Estimated GFR > 60 Glucose 112 H Uric Acid 3.6 Calcium 8.9 Total Bilirubin 0.2 AST 18 ALT 13 Alkaline Phosphatase 84 Total Protein 6.0 L Albumin 3.4 L Urine Color Light yellow Urine Appearance Clear Urine pH 6.5 Ur Specific [place] <= 1.005 Urine Protein Negative Urine Glucose (UA) Negative Urine Ketones Negative Ur Blood (Man) Negative Urine Nitrate Negative Urine Bilirubin Negative Urine Urobilinogen 0.2 Add Ur Microanalysis Reviewed Leukocyte Esterase Rfl Negative Urine RBC 0-2 Urine WBC 0-5 Ur Squamous Epith Cells None seen Urine Bacteria None seen Urine Casts 0-2 U Random Total Protein 15 Urine Creatinine 25.4 Protein/Creat Ratio 2 0.59 H Vital signs: Vital Signs - 24 hr 02/27/24 19:11 02/27/24 19:15 02/27/24 19:30 Pulse Rate 100 99 100 Blood Pressure 135/86 134/83 135/79 02/27/24 19:46 02/27/24 20:00 02/27/24 20:15 Pulse Rate 96 99 101 H Blood Pressure 132/78 130/74 135/77 Final Diagnosis (1) Pre-eclampsia superimposed on chronic hypertension: Code(s): O11.9 - Pre-existing hypertension with pre-eclampsia, unspecified trimester Status: Acute
== END 2024-02-27 20:35 ==
LOC: ANHOBOP 18:48 → ANHOBPP 18:49
PROVIDERS: Obstetrics & Gynecology; PCP Family Medicine; Visit Provider Student in an Organized Health Care Education/Training Program
DX: O13.9 Gestational [pregnancy-induced] hypertension without significant proteinuria, unspecified trimester (principal)
CPT/HCPCS: 36415; 80053; 81003; 82570; 84156; 84550; 85025; 99199

== ENCOUNTER 2024-03-15 13:05 | Outpatient (CLI) | payer BC, SELFPAY ==
[2024-03-15 13:54] LABS: Basophils Percent Auto 0.2 % (0.2-1.2); Eosinophils Absolute Auto 0.1 K/mm3 (0-0.3); Eosinophils Percent Auto 0.6 % (0-4.4); Hematocrit 30.9 % (37.0-47.0); Hemoglobin 9.9 g/dL (12.0-15.0); Immature Granulocyte Absolute 0.22 K/mm3 (0.00-0.031); Immature Granulocyte Percent A 1.8 % (0-0.5); Lymphocytes Absolute Auto 1.72 K/mm3 (0.9-3.2); Lymphocytes Percent Auto 13.9 % (18.3-44.2); Mean Corpuscular Hemoglobin 26.5 pg (26-34); Mean Corpuscular Volume 82.8 fl (80-100); Mean Platelet Volume 9.3 fl (7.4-10.4); Monocytes Absolute Auto 0.8 K/mm3 (0.1-0.6); Monocytes Percent Auto 6.1 % (2.6-8.5); Neutrophils Absolute Auto 9.6 K/mm3 (1.3-6.7); Neutrophils Percent Auto 77.4 % (45.5-73.1); Platelet Count Result 216 k/mm3 (150-375); Red Blood Count 3.73 M/mm3 (4.2-5.4); Red Cell Distribution Width 15.5 % (11.5-14.5); White Blood Count 12.4 K/mm3 (4.5-10.0)
[2024-03-15 14:04] LABS: Creatinine Urine 113.4 mg/dL
[2024-03-15 14:05] LABS: Total Protein Urine Random < 5 mg/dL; Ur Ttl Prot Creatinine Ratio < 0.04 mg/mg (0-0.20)
[2024-03-15 14:10] LABS: Alanine Aminotransferase 14 U/L (6-35); Albumin Level 3.9 g/dL (3.5-5.1); Alkaline Phosphatase 99 U/L (38-126); Anion Gap 11 mmol/L (4-12); Aspartate Amino Transferase 22 U/L (14-36); Bilirubin,Total 0.3 mg/dL (0.2-1.3); Blood Urea Nitrogen 4 mg/dL (7-17); Calcium 8.9 mg/dL (8.4-10.2); Carbon Dioxide 19 mmol/L (22-30); Chloride 103 mmol/L (98-107); Estimated Glomerular Filt Rate > 60; Glucose 160 mg/dL (65-110); Potassium 3.3 mmol/L (3.4-5.0); Sodium 133 mmol/L (137-145)
== END 2024-03-15 13:06 | disposition home or self-care (01) ==
DX: O14.90 Unspecified pre-eclampsia, unspecified trimester (principal); O10.919 Unspecified pre-existing hypertension complicating pregnancy, unspecified trimester; O30.049 Twin pregnancy, dichorionic/diamniotic, unspecified trimester; Z3A.00 Weeks of gestation of pregnancy not specified
CPT/HCPCS: 36415; 80053; 82570; 84156; 85025

== ENCOUNTER 2024-03-19 09:26 | Observation (INO) | payer BC, SELFPAY ==
[2024-03-19 09:55] VITALS: BP 112/63; PULSE 114
[2024-03-19 10:00] VITALS: RESP 18; TEMP 36.8
[2024-03-19 10:03] VITALS: BMI 46.0
--- NOTE | 2024-03-19 10:07 | OBADM ---
This patient, Michaela John, admitted to the OB room 116 for observation. Patient/family oriented to hospital policies and general routines including ID bracelet, bed and alarms, visiting hours, pain management, procedures, bathroom and other care routines, personal items, smoking policy, room service/diet, and visiting hours. Patient/Family are encouraged to report perceived risks to care and to ask questions if they do not understand what they are told or what they should do.
[2024-03-19 10:30] VITALS: BP 120/66; PULSE 106
[2024-03-19 10:34] LABS: Add Urine Microscopic? YES; Appearance Urine Cloudy (Clear); Bacteria Urine 1+ /hpf; Bilirubin Urine Negative (Negative); Blood Urine Negative (Negative); Color Urine Yellow (Yellow); Glucose Urine UA Negative (Negative); Ketones Urine Trace mg/dL (Negative); Leukocyte Esterase Ur 2+ LEU/UL (Negative); Nitrate Urine Negative (Negative); Non Pathogenic Casts 0-2; Protein Urine Trace mg/dL (Negative); Specific Grav Ur 1.019 (1.001-1.035); Squamous Epithelial Cell Urine Many /hpf (Few); Urobilinogen Urine 0.2 mg/dL (<2.0); WBC Urine 21-50 /hpf (0-3)
--- NOTE | 2024-03-19 10:41 | PC.NURSE ---
labia and blotted with a white cloth- no blood noted. Blotted white cloth by rectum and scant amount red blood noted. No hemorrhoid visible externally. Pt up to void.
[2024-03-19 11:00] VITALS: BP 112/69; PULSE 108
--- NOTE | 2024-03-21 10:36 | PM.OBTRLD ---
OB - Triage/Final Diagnosis Visit Information Reason for evaluation: threatened labor Comments/Additional reasons for admission: I have assessed the risk for this patient, Michaela John, and determined that she would benefit from observation care. Evaluation Laboratory results: Laboratory Tests 03/19/24 10:22 Urine Color Yellow Urine Appearance Cloudy H Urine pH 6.0 Ur Specific [place] 1.019 Urine Protein Trace Urine Glucose (UA) Negative Urine Ketones Trace H Ur Blood (Man) Negative Urine Nitrate Negative Urine Bilirubin Negative Urine Urobilinogen 0.2 Leukocyte Esterase Rfl 2+ H Urine RBC 3-5 H Urine WBC 21-50 H Ur Squamous Epith Cells Many H Urine Bacteria 1+ H Urine Casts 0-2
== END 2024-03-19 11:48 | disposition home or self-care (01) ==
PROVIDERS: Admitting Provider Obstetrics & Gynecology; Visit Provider Obstetrics & Gynecology
DX: O47.03 False labor before 37 completed weeks of gestation, third trimester (principal); Z3A.31 31 weeks gestation of pregnancy
CPT/HCPCS: 81001; 87086; G0378; G0379

== ENCOUNTER 2024-03-23 07:31 | Outpatient (CLI) | payer BC, SELFPAY ==
--- NOTE | ~2024-03-23 | US_ITS ---
Limited Abdominal Sonogram: Real-time sonographic imaging of the right upper quadrant was performed. Clinical History: Twin Findings: The liver appears normal with no evidence of mass lesion or bile duct dilatation. Main por robyn vein demonstrates normal direction of flow. The gallbladder is well distended, and demonstrates f ocal area of cholesterolosis with ringdown artifact. Small gallstones also present. The common bile d uct measures 2 mm. The visualized pancreas, aorta, and IVC are unremarkable. Impression: Cholelithiasis and focal area of cholesterolosis. Reviewed, dictated and finalized at location M. Impression: Cholelithiasis and focal area of cholesterolosis.
== END 2024-03-23 07:32 | disposition home or self-care (01) ==
LOC: ANHIMG 07:33
DX: O30.049 Twin pregnancy, dichorionic/diamniotic, unspecified trimester (principal); O14.90 Unspecified pre-eclampsia, unspecified trimester; Z3A.00 Weeks of gestation of pregnancy not specified; K80.20 Calculus of gallbladder without cholecystitis without obstruction
CPT/HCPCS: 76705

== ENCOUNTER 2024-04-14 10:00 | Outpatient (RCR) | payer BC, SELFPAY ==
[2024-03-01 14:11] VITALS: BP 128/59; PULSE 108
[2024-03-08 15:35] VITALS: BP 120/79; PULSE 89
[2024-03-17 14:03] VITALS: BP 125/74; PULSE 113
[2024-03-21 14:34] VITALS: BP 123/75; PULSE 104
[2024-03-23 09:25] VITALS: BP 125/78; PULSE 122
[2024-03-31 13:36] VITALS: BP 134/78; PULSE 98
[2024-04-04 10:42] VITALS: BP 127/74; PULSE 105
[2024-04-07 10:05] VITALS: BP 123/65; PULSE 105
[2024-04-11 13:11] VITALS: BP 125/76; PULSE 102
--- NOTE | ~2024-04-14 | US_ITS ---
EXAMINATION: US OB BPP multi gestation DATE: 03/08/2024 15:36 INDICATION: Third trimester twin . Preeclampsia. TECHNIQUE: Real-time ultrasound of the pelvis was performed. The interpreting radiologist was not pre sent for the study. COMPARISON: 03/01/2024 FINDINGS: There are two living fetuses by thick membrane consistent with dichorionic diamniotic pregn maria l. Fetus A is on maternal left and fetus B is on maternal right. The amniotic fluid volume is sub jectively normal with normal deepest vertical pocket measurement of 3.2 cm for fetus A and 4.2 cm for fetus B. Fetus A: Presentation is vertex. Placenta is posterior. cardiac activity and movement are noted. F etal heart rate is 155 beats per minute (bpm). Biophysical profile performed by the technologist: breathing (30 sec sustained breathing in 30 minutes): 2 out of 2 movement (3 gross body movements in 30 minutes): 2 out of 2 tone (one episode of omcxyvl-qopwekxex-bcijjwk limb movement): 2 out of 2 Amniotic fluid pocket (2 cm): 2 out of 2 Total score: 8 out of 8 Fetus B: Fetus is in transverse lie with head to the maternal right. cardiac activity and movement are noted. heart rate is 150 bpm. Biophysical profile performed by the technologist: breathing (30 sec sustained breathing in 30 minutes): 2 out of 2 movement (3 gross body movements in 30 minutes): 2 out of 2 tone (one episode of wbuqtuh-zgqdudaxz-mzmpzdb limb movement): 2 out of 2 Amniotic fluid pocket (2 cm): 2 out of 2 Total score: 8 out of 8 IMPRESSION: 1. Living twin fetuses. 2. Biophysical profile 8 out of 8 for fetus A and 8 out of 8 for fetus B. Reviewed, dictated and finalized at location A.
--- NOTE | ~2024-04-14 | US_ITS ---
EXAMINATION: US OB BPP multi gestation DATE: 04/14/2024 12:06 INDICATION: Preeclampsia. Third trimester. Twins. TECHNIQUE: Real-time ultrasound of the pelvis was performed. COMPARISON: Ultrasound 04/04/2024 FINDINGS: There are two living fetuses surrounded by a membrane. The placentas are posterior and anterior. The amniotic fluid volume is subjectively normal in each sac. Fetus A: Presentation is vertex. heart rate is 147 beats per minute (bpm). Biophysical profile performed by the technologist: breathing (30 sec sustained breathing in 30 minutes): 2 out of 2 movement (3 gross body movements in 30 minutes): 2 out of 2 tone (one episode of dbkmbqe-enwgdolwj-ejexmgd limb movement): 2 out of 2 Amniotic fluid pocket (2 cm): 2 out of 2 Total score: 8 out of 8 Fetus B: Presentation is vertex. heart rate is 138 bpm. Biophysical profile performed by the technologist: breathing (30 sec sustained breathing in 30 minutes): 2 out of 2 movement (3 gross body movements in 30 minutes): 2 out of 2 tone (one episode of asztwqq-ayddcuida-vrlikfz limb movement): 2 out of 2 Amniotic fluid pocket (2 cm): 2 out of 2 Total score: 8 out of 8 IMPRESSION: 1. Living the leonid, diamniotic twin fetuses. 2. Biophysical profile 8 out of 8 for fetus A and 8 out of 8 for fetus B. Reviewed, dictated and finalized at location B.
--- NOTE | ~2024-04-14 | US_ITS ---
EXAMINATION: US OB BPP multi gestation DATE: 03/01/2024 14:57 INDICATION: Preeclampsia. Twin . Estimated gestational age of 29 weeks and 0 days. TECHNIQUE: Real-time ultrasound of the pelvis was performed. COMPARISON: Ultrasound 11/10/2023, 10/11/23 FINDINGS: There are two living fetuses by a membrane. The placentas are anterior and posterior. The amniotic fluid volume is subjectively normal in each sac. Fetus A: Presentation is vertex on the mother's left. heart rate is 140 beats per minute (bpm). Biophysical profile performed by the technologist: breathing (30 sec sustained breathing in 30 minutes): 2 out of 2 movement (3 gross body movements in 30 minutes): 2 out of 2 tone (one episode of kdczmfm-lnbvthnhc-qfdwgmd limb movement): 2 out of 2 Amniotic fluid pocket (2 cm): 2 out of 2 Total score: 8 out of 8 Fetus B: Lie is transverse with head to the mother's left. heart rate is 145 bpm. Biophysical profile performed by the technologist: breathing (30 sec sustained breathing in 30 minutes): 2 out of 2 movement (3 gross body movements in 30 minutes): 2 out of 2 tone (one episode of dotehld-ryiuemcer-plpuddg limb movement): 2 out of 2 Amniotic fluid pocket (2 cm): 2 out of 2 Total score: 8 out of 8 IMPRESSION: 1. Living dichorionic, diamniotic twin fetuses. 2. Biophysical profile 8 out of 8 for fetus A and 8 out of 8 for fetus B. Reviewed, dictated and finalized at location A.
--- NOTE | ~2024-04-14 | US_ITS ---
EXAMINATION: US OB BPP multi gestation DATE: 03/21/2024 14:53 INDICATION: Twin . Third trimester. TECHNIQUE: Real-time ultrasound of the pelvis was performed. COMPARISON: Ultrasound 03/08/2024, 10/11/23 FINDINGS: There are two living fetuses. The placentas are anterior and posterior. The amniotic fluid volume is subjectively normal in each sac. The cervical length is 3.0 cm on transabdominal images, which is no rmal. Fetus A: Presentation is vertex. heart rate is 141 beats per minute (bpm). Biophysical profile performed by the technologist: breathing (30 sec sustained breathing in 30 minutes): 2 out of 2 movement (3 gross body movements in 30 minutes): 2 out of 2 tone (one episode of tatfhoz-qlfvskktf-czrxbuo limb movement): 2 out of 2 Amniotic fluid pocket (2 cm): 2 out of 2 Total score: 8 out of 8 Fetus B: Presentation is vertex. heart rate is 139 bpm. Biophysical profile performed by the technologist: breathing (30 sec sustained breathing in 30 minutes): 2 out of 2 movement (3 gross body movements in 30 minutes): 2 out of 2 tone (one episode of khyetml-luwypljwc-zrzwgkn limb movement): 0 out of 2 Amniotic fluid pocket (2 cm): 2 out of 2 Total score: 6 out of 8 IMPRESSION: 1. Living dichorionic, diamniotic twin fetuses. 2. Biophysical profile 8 out of 8 for fetus A and 6 out of 8 for fetus B. Reviewed, dictated and finalized at location A.
--- NOTE | ~2024-04-14 | US_ITS ---
EXAMINATION: US OB BPP multi gestation DATE: 04/04/2024 11:46 INDICATION: Preeclampsia. . Third trimester. TECHNIQUE: Real-time ultrasound of the pelvis was performed. COMPARISON: Ultrasound 03/21/2024, 10/11/2023 FINDINGS: There are two living fetuses. The placentas are anterior and fundal. The cervical length is 3.4 cm o n transabdominal images, which is normal. The amniotic fluid volume is subjectively normal in each sa c. Fetus A: Presentation is vertex. heart rate is 140 beats per minute (bpm). Biophysical profile performed by the technologist: breathing (30 sec sustained breathing in 30 minutes): 2 out of 2 movement (3 gross body movements in 30 minutes): 2 out of 2 tone (one episode of zafdcif-nftrnviuq-lboyuqb limb movement): 2 out of 2 Amniotic fluid pocket (2 cm): 2 out of 2 Total score: 8 out of 8 Fetus B: Presentation is vertex. heart rate is 143 bpm. Biophysical profile performed by the technologist: breathing (30 sec sustained breathing in 30 minutes): 2 out of 2 movement (3 gross body movements in 30 minutes): 2 out of 2 tone (one episode of rvehzwc-oemupbkcp-qlddatq limb movement): 2 out of 2 Amniotic fluid pocket (2 cm): 2 out of 2 Total score: 8 out of 8 IMPRESSION: 1. Living dichorionic, diamniotic twin fetuses. 2. Biophysical profile 8 out of 8 for fetus A and 8 out of 8 for fetus B. Reviewed, dictated and finalized at location A.
[2024-04-14 12:00] VITALS: BP 141/78; PULSE 102
== END 2024-05-10 17:55 | disposition home or self-care (01) ==
LOC: ANHOBOP 10:00
PROVIDERS: PCP Family Medicine; Visit Provider Student in an Organized Health Care Education/Training Program
DX: O30.043 Twin pregnancy, dichorionic/diamniotic, third trimester (principal); Z3A.29 29 weeks gestation of pregnancy
CPT/HCPCS: 59025; 76819; J3010

== ENCOUNTER 2024-04-17 16:21 | Outpatient (CLI) | payer BC, SELFPAY ==
[2024-04-17 16:45] VITALS: BP 139/90; PULSE 101
[2024-04-17 17:00] VITALS: BP 142/91; PULSE 94
[2024-04-17 17:04] LABS: Basophils Percent Auto 0.2 % (0.2-1.2); Eosinophils Absolute Auto 0.1 K/mm3 (0-0.3); Eosinophils Percent Auto 0.9 % (0-4.4); Hemoglobin 10.6 g/dL (12.0-15.0); Lymphocytes Absolute Auto 1.65 K/mm3 (0.9-3.2); Lymphocytes Percent Auto 16.2 % (18.3-44.2); Mean Corpuscular HGB Conc 33.1 g/dl (32-36); Mean Corpuscular Hemoglobin 27.5 pg (26-34); Mean Corpuscular Volume 82.9 fl (80-100); Mean Platelet Volume 9.1 fl (7.4-10.4); Monocytes Absolute Auto 0.8 K/mm3 (0.1-0.6); Monocytes Percent Auto 7.8 % (2.6-8.5); Neutrophils Absolute Auto 7.6 K/mm3 (1.3-6.7); Neutrophils Percent Auto 73.9 % (45.5-73.1); Platelet Count Result 171 k/mm3 (150-375); Red Blood Count 3.86 M/mm3 (4.2-5.4); Red Cell Distribution Width 17.7 % (11.5-14.5); White Blood Count 10.2 K/mm3 (4.5-10.0)
[2024-04-17 17:15] LABS: Alanine Aminotransferase 18 U/L (6-35); Albumin Level 3.4 g/dL (3.5-5.1); Alkaline Phosphatase 122 U/L (38-126); Anion Gap 9 mmol/L (4-12); Aspartate Amino Transferase 26 U/L (14-36); Bilirubin,Total 0.4 mg/dL (0.2-1.3); Blood Urea Nitrogen 4 mg/dL (7-17); Calcium 8.7 mg/dL (8.4-10.2); Carbon Dioxide 23 mmol/L (22-30); Chloride 104 mmol/L (98-107); Estimated Glomerular Filt Rate > 60; Glucose 85 mg/dL (65-110); Potassium 3.4 mmol/L (3.4-5.0); Sodium 136 mmol/L (137-145); Uric Acid 4.7 mg/dL (2.5-7.5)
[2024-04-17 17:16] VITALS: BP 146/95; PULSE 95
--- NOTE | 2024-04-17 17:20 | PC.NURSE ---
Dr Griffiths notified of BP's, lab results and hx of chronic htn taking meds, Headache that she rates at a 3. Ok to dc home. Patient to have NST on .
== END 2024-04-17 17:23 | disposition home or self-care (01) ==
LOC: ANHOBOP 16:27 → ANHOBPP 16:28
PROVIDERS: Obstetrics & Gynecology; PCP Student in an Organized Health Care Education/Training Program; Visit Provider Student in an Organized Health Care Education/Training Program
DX: O13.9 Gestational [pregnancy-induced] hypertension without significant proteinuria, unspecified trimester (principal); Z3A.00 Weeks of gestation of pregnancy not specified
CPT/HCPCS: 36415; 59025; 80053; 84550; 85025

== ENCOUNTER 2024-04-19 12:08 | Inpatient (IN) | payer BC, SELFPAY ==
[2024-04-19] VITALS (21 sets, daily range): BP systolic 112–139; BP diastolic 74–88; PULSE 90–105; RESP 13–18; TEMP 36.3; O2SAT 92–100; BMI 49.6
[2024-04-19] MEDS: diphenhydrAMINE HCl INJ 50 MG/ML VIAL 25 MG IV PUSH (01:30)
--- NOTE | 2024-04-19 13:00 | P.HP_ITS ---
H&P: HPI History of Present Illness Date/Time: 04/19/24 13:00 Chief Complaint: Chronic hypertension with superimposed Preeclampsia Di/Di twin gestation anemia desires permanent sterilization Narrative: 29-year-old who presents at 36 weeks 2 days for repeat for worsening preeclampsia. is complicated by Di/Di twin gestation. Patient has a history of chronic hypertension on Labetalol. She developed Preeclampsia without severe features at 28w gestation. Blood pressure was elevated today at testing and patient reported a worsening headache. Patient is also requesting permanent sterilization. [facility] Past Medical History Medical History Amenorrhea, primary Gestational hypertension Glaucoma Preeclampsia Surgical History Surgical History History of 07/03/15 primary c/s--arrest of dilation [place] 10/29/17 rpt c/s History of gynecological procedure (~2018) mirena iud insertion History of gynecological procedure (04/06/22) mirena iud removal History of tonsillectomy (~06/08/02) Family History Family History Mother Diabetes mellitus Social History Social History Smoking status: Never smoker Alcohol intake: never Substance use: never Substance use type: does not use Lack of Transportation: No Lack of Food: Never True Current Housing: I Have Housing Concerned About Future Housing: No Difficulty Paying Gas/Electric Bills: No Difficulty Paying for Meds: No Currently Unemployed: No Education: High School Diploma/GED Difficulty w/ Childcare or Family Care: No Living arrangements: other Additional living arrangements comments: Occupation/Education: other 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 Gender identity (if verbalized by the patient): Female Sexual Orientation (if Verbalized by the Patient): Straight or Heterosexual Spiritual care concerns: No Meds Home Medications and Allergies Home Medications Medication Instructions Recorded Confirmed Type labetalol 100 mg tablet 100 mg PO Q12H 10/19/23 04/10/24 History sertraline 50 mg tablet 50 mg PO DAILY 10/19/23 04/10/24 History folic acid 1 mg tablet 1 mg PO DAILY 11/16/23 04/10/24 History aspirin 81 mg chewable tablet 162 mg PO DAILY 01/04/24 04/10/24 History magnesium 200 mg tablet 400 mg PO DAILY 01/04/24 04/10/24 History vit no.95-ferrous 1 tablet PO DAILY 01/04/24 04/10/24 History fumarate 28 mg-folic acid 800 mcg tablet () ferrous sulfate 325 mg (65 mg 325 mg PO BID #90 tabs 03/06/24 04/10/24 Rx iron) tablet albuterol inhalation PRN Cough 04/12/24 History Allergies Allergy/AdvReac Type Severity Reaction Status Date / Time sulfamethoxazole Allergy Severe Anaphylaxis Verified 04/12/24 08:56 [From Bactrim] trimethoprim [From Bactrim] Allergy Severe Anaphylaxis Verified 04/12/24 08:56 Assessment and Plan Assessment and plan (1) Supervision of high risk , unspecified, third trimester: Code(s): O09.93 - Supervision of high risk , unspecified, third trimester Status: Acute Assessment and Plan: 29 yo at 36w2d 1. delivery x2 2. DA/DC twin 3. Chronic hypertension on labetalol 4. History of gestational diabetes 5. Undesired fertility... bilateral salpingectomy with repeat 6. superimposed Preeclampsia w/o severe features (dx 02/26) 7. 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
[2024-04-19] MEDS: ACETAMINOPHEN 500 MG TABLET 1000 MG PO (14:46)
[2024-04-19] MEDS: LACTATED RINGERS 1,000 ML 125 ML IV CONT ×2 (14:47→19:05)
[2024-04-19 15:01] LABS: Basophils Percent Auto 0.2 % (0.2-1.2); Eosinophils Percent Auto 0.4 % (0-4.4); Hematocrit 34.9 % (37.0-47.0); Hemoglobin 11.5 g/dL (12.0-15.0); Immature Granulocyte Absolute 0.09 K/mm3 (0.00-0.031); Immature Granulocyte Percent A 0.9 % (0-0.5); Lymphocytes Absolute Auto 1.48 K/mm3 (0.9-3.2); Mean Corpuscular Hemoglobin 27.6 pg (26-34); Mean Corpuscular Volume 83.7 fl (80-100); Mean Platelet Volume 9.4 fl (7.4-10.4); Monocytes Absolute Auto 0.8 K/mm3 (0.1-0.6); Monocytes Percent Auto 7.7 % (2.6-8.5); Neutrophils Absolute Auto 7.5 K/mm3 (1.3-6.7); Neutrophils Percent Auto 75.8 % (45.5-73.1); Platelet Count Result 175 k/mm3 (150-375); Red Blood Count 4.17 M/mm3 (4.2-5.4); Red Cell Distribution Width 17.3 % (11.5-14.5); White Blood Count 9.9 K/mm3 (4.5-10.0)
[2024-04-19 15:10] LABS: Alanine Aminotransferase 21 U/L (6-35); Albumin Level 3.5 g/dL (3.5-5.1); Alkaline Phosphatase 137 U/L (38-126); Anion Gap 7 mmol/L (4-12); Aspartate Amino Transferase 29 U/L (14-36); Bilirubin,Total 0.6 mg/dL (0.2-1.3); Blood Urea Nitrogen 4 mg/dL (7-17); Carbon Dioxide 25 mmol/L (22-30); Chloride 104 mmol/L (98-107); Estimated CRCL calculation 180 ml/min; Estimated Glomerular Filt Rate > 60; Glucose 72 mg/dL (65-110); Potassium 3.6 mmol/L (3.4-5.0); Sodium 136 mmol/L (137-145)
--- NOTE | 2024-04-19 15:23 | LDADM ---
This patient, Michaela John, was admitted to OB Post 115 on 04/19/24 at 12:08. Plans for labor, pain management and were discussed with patient. Patient/family oriented to hospital policies and general routines including ID bracelet, bed and alarms, visiting hours, pain management, procedures, bathroom and other care routines, personal items, smoking policy, room service/diet and guest tray routines, infant security routines, and visiting hours. Patient/Family are encouraged to report perceived risks to care and to ask questions if they do not understand what they are told or what they should do. See OBIX for further documentation.
[2024-04-19 15:45] LABS: Rapid Plasma Reagin Non-Reactive (NonReactive)
[2024-04-19 15:51] LABS: HIV 1/2 Ab P24 Ag Result Negative (Negative)
--- NOTE | 2024-04-19 19:43 | P.PNAN_ITS ---
Anes - Initial Pre Proc Eval Procedure: Operation Date: 04/24/24 07:30 Proposed Procedures p Repeat Section with Tubal Ligation - Mark Rubin MD Date/Time: 04/19/24 19:43 Surgeon: Mark Rubin MD Pre Op Diagnosis: C/S Twins Patient Data Age: 29 Gender: F Height: 1.6 m Weight: 127 kg Last Vital Signs Pulse 94 04/19/24 14:03 BP 136/75 04/19/24 14:03 Pulse Ox 99 04/19/24 13:07 O2 Del Method Room Air 04/19/24 15:23 Allergies Allergy/AdvReac Type Severity Reaction Status Date / Time sulfamethoxazole Allergy Severe Anaphylaxis Verified 04/12/24 08:56 [From Bactrim] trimethoprim [From Bactrim] Allergy Severe Anaphylaxis Verified 04/12/24 08:56 Home Medications Medication Instructions Recorded Confirmed Type labetalol 100 mg tablet 100 mg PO Q12H 10/19/23 04/19/24 History sertraline 50 mg tablet 50 mg PO DAILY 10/19/23 04/19/24 History folic acid 1 mg tablet 1 mg PO DAILY 11/16/23 04/19/24 History aspirin 81 mg chewable tablet 162 mg PO DAILY 01/04/24 04/19/24 History magnesium 200 mg tablet 400 mg PO DAILY 01/04/24 04/19/24 History vit no.95-ferrous 1 tablet PO DAILY 01/04/24 04/19/24 History fumarate 28 mg-folic acid 800 mcg tablet () ferrous sulfate 325 mg (65 mg 325 mg PO BID #90 tabs 03/06/24 04/19/24 Rx iron) tablet albuterol 1 mcg inhalation PRN Cough 04/12/24 History Laboratory Tests 04/19/24 14:44 WBC 9.9 K/mm3 (4.5-10.0) RBC 4.17 L M/mm3 (4.2-5.4) Hgb 11.5 L g/dL (12.0-15.0) Hct 34.9 L % (37.0-47.0) MCV 83.7 fl (80-100) MCH 27.6 pg (26-34) MCHC 33.0 g/dl (32-36) RDW 17.3 H % (11.5-14.5) Plt Count 175 k/mm3 (150-375) MPV 9.4 fl (7.4-10.4) Immature Gran % (Auto) 0.9 H % (0-0.5) Neut % (Auto) 75.8 H % (45.5-73.1) Lymph % (Auto) 15.0 L % (18.3-44.2) [place] % (Auto) 7.7 % (2.6-8.5) Eos % (Auto) 0.4 % (0-4.4) Baso % (Auto) 0.2 % (0.2-1.2) Lymph # (Auto) 1.48 K/mm3 (0.9-3.2) [place] # (Auto) 0.8 H K/mm3 (0.1-0.6) Eos # (Auto) 0.0 K/mm3 (0-0.3) Baso # (Auto) 0.0 K/mm3 (0.0-0.1) Abs Immat Gran (auto) 0.09 H K/mm3 (0.00-0.031) Absolute Neuts (auto) 7.5 H K/mm3 (1.3-6.7) Absolute Nucleated RBC 0.000 K/mm3 (0.0-0.012) Nucleated RBC % 0.0 % (0.0-0.2) Sodium 136 L mmol/L (137-145) Potassium 3.6 mmol/L (3.4-5.0) Chloride 104 mmol/L (98-107) Carbon Dioxide 25 mmol/L (22-30) Anion Gap 7 mmol/L (4-12) BUN 4 L mg/dL (7-17) Creatinine 0.50 L mg/dL (0.7-1.0) Estim Creat Clear Calc 180 ml/min Estimated GFR > 60 (59 - ) Glucose 72 mg/dL (65-110) Calcium 9.0 mg/dL (8.4-10.2) Total Bilirubin 0.6 mg/dL (0.2-1.3) AST 29 U/L (14-36) ALT 21 U/L (6-35) Alkaline Phosphatase 137 H U/L (38-126) Total Protein 7.0 g/dL (6.3-8.2) Albumin 3.5 g/dL (3.5-5.1) RPR Non-reactive (NonReactive) HIV 1&2 Ab/P24 Ag 4thGn Negative (Negative) Blood Type O Positive Antibody Screen Negative Patient hx anesthesia problems: none Family hx anesthesia problems: none Results Review: All pre-operative results and documents have been reviewed as part of the pre- operative evaluation. [facility] Past Medical History Medical History Amenorrhea, primary Gestational hypertension Glaucoma Preeclampsia Surgical History Surgical History History of 07/03/15 primary c/s--arrest of dilation [place] 10/29/17 rpt c/s History of gynecological procedure (~2018) mirena iud insertion History of gynecological procedure (04/06/22) mirena iud removal History of tonsillectomy (~06/08/02) Family History Family History Mother Diabetes mellitus Social History Social History Smoking status: Never smoker Alcohol intake: never Substance use: never Substance use type: does not use Do You Feel Safe in your Home?: Yes Lack of Transportation: No Lack of Food: Never True Current Housing: I Have Housing Concerned About Future Housing: No Difficulty Paying Gas/Electric Bills: No Difficulty Paying for Meds: No Currently Unemployed: No Education: High School Diploma/GED Difficulty w/ Childcare or Family Care: No Living arrangements: other Additional living arrangements comments: Occupation/Education: other 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 Gender identity (if verbalized by the patient): Female Sexual Orientation (if Verbalized by the Patient): Straight or Heterosexual Spiritual care concerns: No Anes - Eval Final PreProcedure Day of Procedure 04/19/24 19:43 Patient weight: morbidly obese Heart: regular rate and rhythm Lungs: clear to auscultation Airway: Mallampati scale class II Neurological: alert and oriented ASA classification: III Emergent: no Anesthetic plan: proceed Anesthesia type and monitoring: regional spinal and standard monitoring Results Review: All pre-operative results and documents have been reviewed as part of the pre- operative evaluation. Informed Consent: The patient's anesthetic plan and its attendant risks and benefits were discussed with the patient/family/POA. Questions were solicited and answers provided to the satisfaction of the patient/family/POA.
[2024-04-19] MEDS: FAMOTIDINE 20 MG/2 ML VIAL IV PUSH (20:46)
[2024-04-19] MEDS: ONDANSETRON INJ 4 MG/2 ML VIAL IV PUSH (20:46)
[2024-04-19] MEDS: ceFAZolin 3 GM/D5W 100 ML 100 ML IVPB (20:48)
--- NOTE | 2024-04-19 22:17 | W.PM.OBCSD ---
OB - Delivery Note Procedure Delivery date: 04/19/24 Pre-op diagnosis: Multiple Gestation, Preeclampsia w/o severe features and Previous Delivery Post-op Diagnosis: Same Induction method: None Delivery monitor: External FHT Prior to decision for section, ACOG/SM labor guidelines were considered and discussed with the patient and staff. Decision made to proceed with the section.: Yes Procedure Performed: Repeat Secondary branch: low cervical, transverse and Tubal Ligation Surgeon: Mark Rubin MD Anesthesia type: Spinal Description of Procedure/Findings: The patient was taken to the operating room where epidural anesthesia was found to be adequate. She was then prepped and draped in the usual sterile fashion in the dorsal supine position with a leftward tilt. A Pfannenstiel skin incision was then made with the scalpel and carried through to the underlying layer of fascia. The fascia was then incised in the midline and the incision extended laterally with the Hanley scissors. The superior aspect of the fascia was then grasped with the Yayo clamps, elevated, and the underlying rectus muscles dissected off bluntly and sharply. Attention was then turned to the inferior aspect of this incision which, in a similar fashion, was grasped, tented up with the Yayo clamps, and the rectus muscles dissected off both bluntly and sharply. The rectus muscles were then in the midline, and the peritoneum identified, tented up, and entered sharply with the Metzenbaum scissors. The peritoneal incision was then extended superiorly and inferiorly with good visualization of the bladder. Guille ring retractor was placed for better retraction and visualization. The uterus was inspected for malrotation. The lower uterine segment incised in a low, transverse fashion with the scalpel. The uterine incision was then extended laterally bluntly. Amniotic sac was ruptured with return of clear fluid. Fetus A was then brought to the hysterotomy and delivered. The nose and mouth were suctioned with the bulb suction, and the remainder of the was delivered atraumatically. The cord was clamped and cut. The was handed off to the waiting pediatricians (staff). Cord segment for gasses were sent. Umbilical cord blood was collected for coomb's testing. Position of Fetus B was then check. The amniotic sac was ruptured and clear fluid returned. Fetus B was brought to the hysterotomy and delivered. The remainder of the infant was delivered atraumatically. The cord was clamped and cut. The infant was handed off to the waiting pediatricians (staff). Cord segment for gasses were sent. Umbilical cord blood was collected for coomb's testing. The placentas were then removed manually, the uterus exteriorized, and cleared of all clots and debris. The uterine incision was repaired with 0 vicryl in a running fashion. Both fallopian tubes were identified and followed out to the fimbriae bilaterally. The left fallopian tube was grasped with Babcocks and elevated to identify an avascular space in the mesosalpinx. The ligasure device was then used to caogulate and ligate along the inferior mesosalpinx toward the uterine corpus. The fallopian tube was then transected at the uterine corpus. The same procedure was repeated for the right fallopian tube. The uterus was returned to the abdomen. Several figure of eight sutures with 0-vicryl were needed to obatin hemostasis both at the hysterotomy and at the site of the left fallopian tube. Hemaderm surgical powder was used on the hysterotomy to ensure hemostasis. The uterus was then reinspected to ensure hemostasis as were all subfascial tissues. The fascia was reapproximated with 0 vicryl in a running fashion. The subcutaneous layer was copiously irrigated to clear any clots or debris. The subcutaneous tissue was reapproximated using 3-0 Vicryl in a running fashion. The skin was closed with 3-0 monocryl. The patient tolerated the procedure well. Sponge, lap and needle counts were correct times three. The patient was taken to the recovery room in stable condition. Specimen: Yes (placenta x2) Urine Output: 150 Drains: No Packing: No Pathology: Yes (placenta x2) Complications: No immediate complications Condition: Stable Disposition: Floor Baby Date of : 04/19/24 Time of : 21:29 Gestational Age by Date: 36 Infant gender: Female presentation: vertex Placenta delivery description: Manual Removal Cord Vessel Description: 3 Vessels Twins 2: Date of : 04/19/24 Time of : 21:31 Weeks of gestation at delivery: 36 Infant gender: Female presentation: vertex Placental delivery description: Manual Removal Cord Vessel Description: 3 Vessels
[2024-04-19] MEDS: OXYTOCIN 30 UNITS/NS 500 ML 30 UNITS/500 ML BAG 125 UNITS IV CONT (22:44)
[2024-04-19] MEDS: MORPHINE SULFATE INJ (*CRX) 10 MG/ML AMP 3 MG IV PUSH (23:43)
[2024-04-20] VITALS (20 sets, daily range): BP systolic 117–146; BP diastolic 58–104; PULSE 81–126; RESP 14–24; TEMP 36.2–36.8; O2SAT 95–99
[2024-04-20] MEDS: MORPHINE SULFATE INJ (*CRX) 10 MG/ML AMP 3 MG IV PUSH ×2 (00:05→02:00)
[2024-04-20] MEDS: KETOROLAC 15 MG/ML VIAL (*BKC) IV PUSH ×2 (04:30→10:36)
[2024-04-20] MEDS: ACETAMINOPHEN 325 MG TABLET 650 MG PO ×3 (04:30→17:03)
--- NOTE | 2024-04-20 06:15 | OBPPTRN ---
Patient transferred to post room #287 via bed. Support person present. Oriented to unit, room, information board, rooming in, admission packet and security measures. Patient verbalizes understanding.
--- NOTE | 2024-04-20 06:30 | PC.NURSE ---
This RN transferred patient to post unit and gave report to Chandler Emery RN at this time. Reported on QBL, fundus and medications given.
[2024-04-20] MEDS: MULTIVIT/MIN/PREN/FOL AC/IRON TABLET 1 TAB PO (07:19)
[2024-04-20] MEDS: SIMETHICONE 80 MG TAB.CHEW PO ×2 (07:19→17:03)
[2024-04-20] MEDS: POLYSACCHARIDE IRON COMPLEX 150 MG CAPSULE PO (07:20)
[2024-04-20] MEDS: SERTRALINE HCL 50 MG TABLET PO (07:21)
[2024-04-20] MEDS: DOCUSATE SODIUM 100 MG CAPSULE PO ×2 (07:22→17:03)
[2024-04-20] MEDS: DEXTROSE 5%/0.45% SOD CHL 1,000 ML 125 ML IV CONT (07:22)
[2024-04-20] MEDS: LABETALOL HCL 100 MG TABLET PO ×2 (07:22→20:00)
[2024-04-20] MEDS: diphenhydrAMINE HCl INJ 50 MG/ML VIAL 25 MG IV PUSH (07:37)
--- NOTE | 2024-04-20 08:19 | P.PNOB_ITS ---
OB - PN: Subj Subjective Date/time seen: 04/20/24 08:19 Interval history: patient was just getting up to this morning. Both twin infants were transferred to [facility] for respiratory support. Patient is tearful and upset this morning after being from her babies. Patient has not had much sleep overnight. She reports adequate pain control. She denies any heavy bleeding overnight. She has no other questions today. Patient comments: no complaints and pain well controlled; no flatus present OB - PN: Obj Data Labs 04/19/24 14:44 04/19/24 14:44 Labs: Laboratory Results - last 24 hr 04/19/24 14:44 WBC 9.9 RBC 4.17 L Hgb 11.5 L Hct 34.9 L MCV 83.7 MCH 27.6 MCHC 33.0 RDW 17.3 H Plt Count 175 MPV 9.4 Immature Gran % (Auto) 0.9 H Neut % (Auto) 75.8 H Lymph % (Auto) 15.0 L [place] % (Auto) 7.7 Eos % (Auto) 0.4 Baso % (Auto) 0.2 Lymph # (Auto) 1.48 [place] # (Auto) 0.8 H Eos # (Auto) 0.0 Baso # (Auto) 0.0 Abs Immat Gran (auto) 0.09 H Absolute Neuts (auto) 7.5 H Absolute Nucleated RBC 0.000 Nucleated RBC % 0.0 Sodium 136 L Potassium 3.6 Chloride 104 Carbon Dioxide 25 Anion Gap 7 BUN 4 L Creatinine 0.50 L Estim Creat Clear Calc 180 Estimated GFR > 60 Glucose 72 Calcium 9.0 Total Bilirubin 0.6 AST 29 ALT 21 Alkaline Phosphatase 137 H Total Protein 7.0 Albumin 3.5 RPR Non-reactive HIV 1&2 Ab/P24 Ag 4thGn Negative Blood Type O Positive Antibody Screen Negative OB - PN A/P Plan day: 1 Plan: routine care Comments: patient tired and emotional this morning twins were transferred to [facility] mild range BP with tachycardia overnight post op H/H pending incision covered with YOMI dressing kaleb continue labetalol BID and monitoring BP monitoring urine output reports adequate pain control continue routine post op care Time Spent With Patient Time: Total time spent is greater than 50% in coordination of care (as documented) at patient's floor/unit and/or counseling patient: Time with patient: less than 15 minutes Review of Systems Constitutional: Constitutional: Reports no additional constitutional complaints Cardiovascular: Cardiovascular: Reports no additional cardiovascular complaints Respiratory: Respiratory: Reports no additional respiratory complaints Gastrointestinal: Gastrointestinal: Reports no additional gastrointestinal complaints Genitourinary: Genitourinary: Reports no additional female genitourinary complaints Exam Const: General: comfortable and no acute distress Resp: Effort & Inspection: normal respiratory effort Auscultation: clear to auscultation bilaterally Cardio: Rate: regular rate GI: GI Palp: Yes Soft to palpation and Yes Tenderness to palpation present (GI) (appropriately tender around incision ) Auscultation: normal bowel sounds Other: covered with YOMI dressing Urinary Catheter: Urinary Catheter: urine clear Psych: Appearance: grossly normal Mental Status: mental status grossly normal Affect: normal affect
[2024-04-20 08:27] LABS: Basophils Percent Auto 0.2 % (0.2-1.2); Eosinophils Percent Auto 0.1 % (0-4.4); Hematocrit 31.4 % (37.0-47.0); Hemoglobin 10.3 g/dL (12.0-15.0); Immature Granulocyte Absolute 0.05 K/mm3 (0.00-0.031); Immature Granulocyte Percent A 0.4 % (0-0.5); Lymphocytes Absolute Auto 1.31 K/mm3 (0.9-3.2); Lymphocytes Percent Auto 10.9 % (18.3-44.2); Mean Corpuscular HGB Conc 32.8 g/dl (32-36); Mean Corpuscular Hemoglobin 27.9 pg (26-34); Mean Corpuscular Volume 85.1 fl (80-100); Mean Platelet Volume 9.4 fl (7.4-10.4); Monocytes Absolute Auto 0.6 K/mm3 (0.1-0.6); Monocytes Percent Auto 5.3 % (2.6-8.5); Neutrophils Percent Auto 83.1 % (45.5-73.1); Platelet Count Result 158 k/mm3 (150-375); Red Blood Count 3.69 M/mm3 (4.2-5.4); Red Cell Distribution Width 17.4 % (11.5-14.5)
--- NOTE | 2024-04-20 10:29 | WPDANLDPN2 ---
Anes-Prog Note L&D Date/Time: 04/20/24 10:29 Comfortable throughout: section Neuraxial method: spinal Epidural/Spinal procedure site: clean & non-tender Neuro status: Neuro function grossly intact. Cardiovascular status: normal Respiratory status: normal Airway patency: baseline Mental status: baseline Post-Op hydration status: normal Vital Signs: Last Vital Signs Temp 36.2 C L 04/20/24 07:40 Pulse 113 H 04/20/24 07:40 Resp 16 04/20/24 07:40 BP 128/83 04/20/24 07:40 Pulse Ox 98 04/20/24 07:40 O2 Del Method Room Air 04/20/24 05:00 Pain score (VAS): 0/10 I/O: Intake & Output 04/19/24 04/20/24 04/20/24 23:59 07:59 15:59 Intake Total 1000 Output Total 6997 473 Balance -2220 -473 Post-procedural complaints: none Patient feedback: Patient satisfied with anesthetic care.
--- NOTE | 2024-04-20 10:29 | WPDANLDNPN2 ---
Anes-Prog Note L&D-Neuraxial Date/Time: 04/20/24 10:29 Neuraxial medications: intrathecal PF morphine Opiod-related complaints: pruritis moderate, treatment effective Patient feedback: Patient satisfied with post-operative pain management.
--- NOTE | 2024-04-20 13:18 | PC.NURSE ---
Patient left at 1318 to visit infant at [facility] aware that she needs to return by 1700.
[2024-04-20] MEDS: IBUPROFEN 600 MG TABLET PO (17:07)
--- NOTE | 2024-04-20 17:45 | PC.NURSE ---
1740. This RN went to help mom set up her breast pump she brought from home per her request. Mom has a mom cozi brand breast pump. Instructions given on cleaning, care, usage, that there should be no pain, pumping schedule for milk production, collection, and storage of human milk. Patient was assessed for correct placement, flange size, to pump for comfort and nipple stretching/stimulation for adequate milk production every 3 hours (8 times in 24 hours) 1-2 times at night. Parents are encouraged to record the pumping schedule on the feeding sheet. Moms nipples measured at size 18mm bilaterally. Mom is encouraged to use a flange 1-3mm more than her nipple size per the mom cozi website. ?Mother voiced understanding of the education shared along with mom/baby guide and the pump measurement, flange fit handout for additional resource information. Reported to the Primary RN.
[2024-04-21] VITALS: BP 131/91; PULSE 96; RESP 18; TEMP 36.9; O2SAT 97
[2024-04-21] MEDS: IBUPROFEN 600 MG TABLET PO ×4 (00:03→18:48)
[2024-04-21] MEDS: ACETAMINOPHEN 325 MG TABLET 650 MG PO ×4 (00:03→18:48)
[2024-04-21 04:20] VITALS: BP 134/94; PULSE 88; RESP 18; TEMP 36.7; O2SAT 96
[2024-04-21 08:10] VITALS: BP 141/89; PULSE 107; RESP 16; TEMP 36.5; O2SAT 100
[2024-04-21 08:46] VITALS: PULSE 106
[2024-04-21] MEDS: SIMETHICONE 80 MG TAB.CHEW PO ×3 (08:46→18:48)
[2024-04-21] MEDS: SERTRALINE HCL 50 MG TABLET PO (08:46)
[2024-04-21] MEDS: LABETALOL HCL 100 MG TABLET PO (08:46)
[2024-04-21] MEDS: DOCUSATE SODIUM 100 MG CAPSULE PO ×2 (08:46→18:48)
[2024-04-21] MEDS: MULTIVIT/MIN/PREN/FOL AC/IRON TABLET 1 TAB PO (08:46)
[2024-04-21 12:32] VITALS: BP 126/78; PULSE 111; RESP 18; TEMP 36.6; O2SAT 98
--- NOTE | 2024-04-21 12:33 | P.PNOB_ITS ---
OB - PN: Subj Subjective Date/time seen: 04/21/24 12:33 Patient comments: no complaints, pain well controlled, tolerating diet and flatus present OB - PN: Obj Data Labs 04/20/24 08:13 04/19/24 14:44 OB - PN A/P Plan day: 2 Plan: routine care Comments: patient doing well this AM BP mild range diuresing well infants are doing well at [facility] Pt is having some mild pain at the 6 hour lesly, advised staggering pain meds pt desires to stay another night anticipate d/c home tomorrow pt may have pass to see twins in NICU Time Spent With Patient Time: Total time spent is greater than 50% in coordination of care (as documented) at patient's floor/unit and/or counseling patient: Time with patient: less than 15 minutes Exam GI: Other: incision covered with YOMI dressing
--- NOTE | 2024-04-21 12:35 | PM.OBDSVD ---
DS: Admitting Diagnosis Discharge Date 04/22/24 Admitting Diagnosis Di/DI Twin gestation Chronic hypertension with superimposed preeclampsia h/o section x 2 requests permanent sterilization DS: Discharge Diagnosis Discharge Diagnosis (1) delivery delivered: Code(s): O82 - Encounter for delivery without indication Status: Acute OB - DS: Summary OB Procedures : None OB Procedures Intrapartum: OB Procedures: : None Peripartum Data Infant Delivery Method: Section Procedures: Procedures Operation Date: 04/19/24 21:00 Actual Procedure Side Surgeon p Section Bilateral Mark Rubin MD Operation Date: 04/24/24 07:30 <No data on this case meets the specified criteria> complications: none Status at Discharge Functional status at discharge: independent ambulation Overall status at discharge: patient is progressing back to baseline Time Spent with Patient Time attestation: Total time spent providing and/or coordinating discharge services: Time spent: Less than 30 minutes Exam Const: General: comfortable and no acute distress Resp: Effort & Inspection: normal respiratory effort Auscultation: clear to auscultation bilaterally Cardio: Rate: regular rate GI: Inspection: non-distended GI Palp: Yes Soft to palpation, No Firmness to palpation present (GI), Yes Tenderness to palpation present (GI) (mild tenderness over incision ) and No Guarding due to palpation present (GI) Auscultation: normal bowel sounds Psych: Appearance: grossly normal Mental Status: mental status grossly normal DS: Data Data Completed and Pending Pending studies at discharge: Pending at discharge 04/19/24 21:34 Surgical [PTH] Routine Discharge Plan Discharge Discharging Clinician: Mark Rubin Patient Disposition: Home, Self-Care Activity: no straining, as tolerated and pelvic rest Diet: regular Patient Instructions: Antibiotic Form, Preeclampsia and Eclampsia After Delivery (GEN), (DC) Stand Alone Forms: General Discharge Information Follow-up/Referrals: Mark Rubin MD [Physician] - 1 Week (for staple removal and BP check) Discharge Medications: New oxycodone-acetaminophen 5-325 mg tablet 1 tablet PO Q6H PRN (Reason: pain) Qty: 28 0RF ibuprofen 600 mg tablet 600 mg PO Q6H PRN (Reason: pain) Qty: 30 0RF Continued albuterol 90 mcg 1 mcg inhalation PRN (Reason: Cough) Rx Instructions: 2 puffs every 4 hours as needed cough sertraline 50 mg tablet 50 mg PO DAILY folic acid 1 mg tablet 1 mg PO DAILY labetalol 100 mg tablet 100 mg PO Q12H magnesium 200 mg Tablet 400 mg PO DAILY PNV [id number]-ferrous fumarate-FA [] 28 mg iron- 800 mcg Tablet 1 tablet PO DAILY ferrous sulfate 325 mg (65 mg iron) tablet 325 mg PO BID Qty: 90 1RF Discontinued aspirin 81 mg Tablet,Chewable 162 mg PO DAILY Date of admission: 04/19/24 12:08 Primary Care Provider: PHYSICIAN NOT ON STAFF,NONSTAFF Admitting Provider: Mark Rubin Attending physician on admission: Mark Rubin Condition: Stable
[2024-04-21] MEDS: HYDROcodone/acetaminophen (*CRX) 10-325 MG TABLET 1 TAB PO ×2 (12:51→18:48)
--- NOTE | 2024-04-21 13:30 | PC.NURSE ---
Patient left on pass at 1330 to go to [facility].
[2024-04-21] MEDS: POLYSACCHARIDE IRON COMPLEX 150 MG CAPSULE PO (18:48)
[2024-04-21 20:40] VITALS: BP 137/90; PULSE 110; RESP 18; TEMP 37.1; O2SAT 99
[2024-04-22 00:47] VITALS: BP 131/93; PULSE 95; RESP 18; TEMP 36.8; O2SAT 98
[2024-04-22] MEDS: IBUPROFEN 600 MG TABLET PO ×2 (00:48→07:26)
[2024-04-22] MEDS: ACETAMINOPHEN 325 MG TABLET 650 MG PO ×2 (00:48→07:26)
[2024-04-22] MEDS: HYDROcodone/acetaminophen (*CRX) 10-325 MG TABLET 1 TAB PO ×2 (00:48→11:27)
[2024-04-22 05:00] VITALS: BP 126/82; PULSE 91; RESP 18; TEMP 36.9; O2SAT 99
[2024-04-22] MEDS: SIMETHICONE 80 MG TAB.CHEW PO (07:26)
[2024-04-22 07:30] VITALS: BP 131/98; PULSE 96; RESP 18; TEMP 36.6; O2SAT 100
[2024-04-22 09:09] VITALS: PULSE 87
[2024-04-22] MEDS: LABETALOL HCL 100 MG TABLET PO (09:09)
[2024-04-22] MEDS: DOCUSATE SODIUM 100 MG CAPSULE PO (09:09)
[2024-04-22] MEDS: SERTRALINE HCL 50 MG TABLET PO (09:09)
[2024-04-22] MEDS: MULTIVIT/MIN/PREN/FOL AC/IRON TABLET 1 TAB PO (09:09)
--- NOTE | 2024-04-22 09:12 | PC.NURSE ---
Mother is pumping with her own pump for infants who are at [facility]. Instructions given on cleaning, care, usage, that there should be no pain, pumping schedule for milk production, collection, and storage of human milk. Parents are encouraged to record the pumping schedule on the feeding sheet.?Mother voiced understanding of the education shared along with mom/baby guide and the pump measurement, flange fit handout for additional resource information. Reported to the Primary RN.
[2024-04-24 08:12] VITALS: BP 142/91; PULSE 85; RESP 18; TEMP 36.8; O2SAT 100
== END 2024-04-22 11:35 | disposition home or self-care (01) | DRG 785 ==
LOC: ANHOBPP 12:33 → ANHOB2 04-20 06:53
PROVIDERS: Admitting Provider Student in an Organized Health Care Education/Training Program; Visit Provider Student in an Organized Health Care Education/Training Program
PROC: 10D00Z1 Extraction of Products of Conception, Low, Open Approach (ICD-10-PCS; CPT 59514; principal; 2024-04-19 21:00)
DX: O30.043 Twin pregnancy, dichorionic/diamniotic, third trimester (principal); Z37.2 Twins, both liveborn; Z3A.36 36 weeks gestation of pregnancy; O34.211 Maternal care for low transverse scar from previous cesarean delivery; O11.4 Pre-existing hypertension with pre-eclampsia, complicating childbirth; O99.02 Anemia complicating childbirth; Z30.2 Encounter for sterilization
CPT/HCPCS: 36415; 80053; 85025; 86592; 86703; 86850; 86900; 86901; 88302; 88307; A9270; G0432; J0690; J1200; J1885; J2270; J2274; J2405; J2590; J7120